=== PATIENT | female | born 1945 | race Caucasian/White ===

== ENCOUNTER 2018-05-10 15:00 | Outpatient (RCR) ==
--- NOTE | 2018-05-06 08:51 | RS.OPPTEV2 ---
Date of Note: 05/03/18 Visit #: 1 Date of Evaluation: 05/03/18 Payer Source: MEDICARE Surgery Performed?: No Treatment Diagnosis: Right low back and LE radiating pain History of Condition/Mechanism of Injury:: Reports having these symptoms for about 4-6 weeks. No specific injury at that time. States she did fall about 3 months ago, landing on her right hip. Prior Level of Function.....Patient was independent with: ADL's, Self Care, Caregiving, Ambulation/Mobility, Community Integration/Access Functional Limitations: Sleep, Self Care, ADL's, Reaching, Pushing, Pulling, Lifting, Carrying, Sitting, Standing, Bending, Squatting, Ambulation, Community Access/Integration Current Subjective/complaints:: Mrs. Cisneros reports constant pain in the right buttock/hip and down the leg to the ankle. States she hurts with any position. She has stopped driving due to the severity of her pain. States the left LE feels weaker than the right LE. States she received an injection of dexamethasone on 04/22/18, and it did not help very much. She denies any tingling or numbness into the right LE. States she has tried heat and cold. States heat aggravates her pain. Cold has helped at times, along with elevating her leg. She reports the right knee is bone on bone, and wonders if her pain is both from her back and the right knee. Reports she has to take more of her pain medication and muscle relaxant to sleep at night. *Precautions: none Medical History Medical History: Hypertension, Arthritis Medical History Comments:: sleep apnea, restess leg syndrome, Anxiety, Hyperlipidemia Surgical History Comments:: Lumbar surgery X 14 May 2014, Abdominal surgery 2014 Smoking Status: Never smoker Diagnostic Testing/Imaging:: X rays of lumbar spine on 04/22/18, show anterior fusion device and posterior pedicle screws and rods are intact without hardware complication. Hx Home Medications: amlodipine,aspirin,Benadryl,bupropion,clonidine, cyclobenzaprine,generic for lexapro,gabapentin,HCTZ,Lasix,losartan,meloxicam, miralax,multivitamin,[place],omeprazole,stool softener,zetia. Patient's Goals: Her goal is to get relief of pain. Pain Assessment - Pain Description Pain Location: right SI/buttock/hip, down LE to the ankle. Pain Description: like electrical shock at times Current Pain Intensity: 10+/10 Functional Outcome Measure LE Functional Scale: 10 (80=87.5% impairment) - G Codes & Severity Modifier G Codes & Modifier: Mobility current CM. Mobility goal CK Source of G Code score: LE functional scale Gait - Gait Pattern Gait Comments: Patient amblulates without an assistive device with decreased stance on the right LE. She demonstrates a cautious gait and is also cautious with transfers in the department. - ROM Lumbar Flexion: Hand reach to Mid-Thighs (pt holds onto chair while bent forward at the waist) Sidebending to Left: Reach to Mid-thigh Sidebending to Right: Reach to Mid-thigh Comments: Lumbar extension ~10-15 degrees past neutral reproduces pain in the right LE. Right LE AROM is WFL's. Patient reports pain with hip flexion while supine. - Strength Comments: Left LE strength 4+/5. Right hip flexion 3+, all else 4/5. Right Quads and HS 4/5, ankle 4/5. - Special Tests Seated Dural Stretch Test: Negative Left, Negative Right Comments: Unable to perform valid Special Tests due to pain with most movement of the right hip. Palpation Comments:: Reports tenderness over the right superior gluteal musculature. Reports tenderness over the right SI joint. Moderate muscle guarding along the lumbar paraspinals. Sensation - Sensation Right Lower Extremity: Intact/Normal Left Lower Extremity: Intact/Normal Additional Comments: Additional Comments: Unable to get valid measure of right HS length due to patient reports of pain with hip flexion. Tolerates at least 40 degrees of SLR. Left SLR to 50 degrees. Patient does not tolerate position for TIA's test. Reports no change in symptoms with hip distraction or compression. - Treatment Modality: Electrical Stim Unattended Parameters/Method Applied: 4 large pads, 2 pads at the right SI and lateral gluteal region, other 2 pads just inferior to the right greater trochanter X 15 mins with patient in left side lying, up to 95 peak volts. Patient Position: Left Sidelying - Heat/Cryotherapy Treatment: Cryotherapy (X2, one cold pack to each area of electrodes.) Interventions - Exercise/Activities/Manual Therapy Exercises/Activities: Patient not given exercises today. Manual Therapy: NA HOME EXERCISE PROGRAM: NA - Charges Timed Code Treatment Minutes: 15 mins Total Treatment Time: 48 mins Procedures billed for this date of service:: EVAl Medium, CP, Estim(un) EVALUATION COMPLEXITY LEVEL EVALUATION COMPLEXITY LEVEL: HISTORY: Medium (Hx back surgery, abdominal sx, right knee arthritis pain), EXAM OF BODY SYSTEMS: Medium, CLINICAL PRESENTATION : Medium, CLINICAL DECISION MAKING: Medium Assessment Assessment: Patient presents to therapy with a diagnosis of sciatica right side , right hip and knee pain. She reports constant pain in the right buttock and hip, with pain going down to her ankle. Pain limits her ability with ambulation , ADL's, and selfcare. It is difficult to determine the source of her pain, due to increased pain with most movement of the right hip or low back. She demonstrates potential to benefit from modalities to reduce her acute pain, and progress exercises as tolerated to increase her function with ambulation, ADL's , and selfcare. Patient Education: Education of diagnosis, Body/Joint mechanics, Activity Modification, Education of Plan of Care Rehab Potential: Good Short Term Goals Goal #1: Patient independent and compliant with HEP. Goal to be met by: 05/20/18 Goal #2: Right LE symptoms no longer constant. Goal to be met by: 05/20/18 Goal #3: Radiating symptoms localized to the low back/hip. Goal to be met by: 05/20/18 Intervention Teacher Goals Goal #1: Pt knows HEP and to continue ex's to maintain functional level at D/C. Goal to be met by: 06/10/18 Goal #2: Score on LE functional Scale improved to 59% impaired or less. Goal to be met by: 06/10/18 Goal #3: Pt able to perform selfcare and light ADL's with minimal right LE/LB pain. Goal to be met by: 06/10/18 Goal #4: Pt to ambulate community distances without gait deviation and min. pain. Goal to be met by: 06/10/18 Plan - Treatment to be Provided Procedures: Therapeutic Exercises, Therapeutic Activity, Manual Therapy, Patient Education Modalities: Electrical Stimulation, Ultrasound/Phonophoresis, Class IV Laser, Cryotherapy Other:: DOES NOT WANT HEAT---HEAT AGGRAVATES HER SYMPTOMS - Treatment Plan Frequency: 3 X week Duration: 4 weeks ORDER # VISITS AND/OR THROUGH DATE: 06/10/18 - Treatment Code (1) Low back pain radiating to right leg Code(s): M54.5 - LOW BACK PAIN Comments: M54.5 (2) Gait abnormality Code(s): R26.9 - UNSPECIFIED ABNORMALITIES OF GAIT AND MOBILITY Comments: R26.9
--- NOTE | 2018-05-06 16:41 | RS.OPPTDN ---
Subjective Date of Note: 05/06/18 Visit #: 2 Date of Evaluation: 05/03/18 Payer Source: MEDICARE Treatment Diagnosis: Right low back and LE radiating pain Current Subjective/complaints:: Patient reports treatment at the eval helped, but says she still remains with heightened pain to the R side of her low back and along the R hip and lateral thigh. *Precautions: none - Treatment Modality: Electrical Stim Unattended Parameters/Method Applied: hivolt 4 large pads (2 at the R lumbar paraspinals and 2 along the R hip and lateral thigh) @ 220-235 pk volts x 23 mins Patient Position: Left Sidelying - Heat/Cryotherapy Treatment: Hot Pack (concurrent estim) Interventions - Exercise/Activities/Manual Therapy Exercises/Activities: Patient not given exercises today. Education on diagnosis , anatomy, and using heat/ice at home for pain control. Patient later, admits to feeling nauseated and inquires about her medication causing it. Manual Therapy: NA HOME EXERCISE PROGRAM: NA - Charges Timed Code Treatment Minutes: 10 Total Treatment Time: 33 Procedures billed for this date of service:: hp, estim (un) Assessment: Patient experiencing slight pain reduction following modalities today. After treatment, she c/o feeling nauseated. She should benefit from continued modalities and progress to gentle stretching if yvon. this week. Short Term Goals Goal #1: Patient independent and compliant with HEP. Goal to be met by: 05/20/18 Goal #2: Right LE symptoms no longer constant. Goal to be met by: 05/20/18 Goal #3: Radiating symptoms localized to the low back/hip. Goal to be met by: 05/20/18 License Issuer Goals Goal #1: Pt knows HEP and to continue ex's to maintain functional level at D/C. Goal to be met by: 06/10/18 Goal #2: Score on LE functional Scale improved to 59% impaired or less. Goal to be met by: 06/10/18 Goal #3: Pt able to perform selfcare and light ADL's with minimal right LE/LB pain. Goal to be met by: 06/10/18 Goal #4: Pt to ambulate community distances without gait deviation and min. pain. Goal to be met by: 06/10/18 Plan PLAN OF CARE EXPIRES ON:: 06/10/18 ORDER # VISITS AND/OR THROUGH DATE: 06/10/18 PLAN: Continue TIW to ease R sided back and hip pain
--- NOTE | 2018-05-08 14:30 | RS.OPPTDN ---
Subjective Date of Note: 05/08/18 Visit #: 3 Date of Evaluation: 05/03/18 Payer Source: MEDICARE Treatment Diagnosis: Right low back and LE radiating pain Current Subjective/complaints:: Patient says she may be "itty bitty better." Reports her pain is still really affecting her ambulation. She says moving positions and bed mobility are tough for her. *Precautions: none - Treatment Modality: Electrical Stim Unattended Parameters/Method Applied: hivolt 4 large pads at the R lower lumbar paraspinals and along the R lateral thigh @ 230-255 pk volts x 23 mins Patient Position: Left Sidelying - Heat/Cryotherapy Treatment: Hot Pack Interventions - Exercise/Activities/Manual Therapy Exercises/Activities: Patient still unable to yvon therex today. Pain only lessened slightly after modalities. Educated patient on proper body mechanics and postural techniques. Manual Therapy: NA HOME EXERCISE PROGRAM: NA - Charges Timed Code Treatment Minutes: 7 Total Treatment Time: 30 Procedures billed for this date of service:: hp, estim (un) Assessment: Patient continues to have severe R low back and hip pain. Pain extends down the upper lateral thigh and worsens with bed mobility and positioning. Patient Education: Education of diagnosis, Body/Joint mechanics, Home Safety, Education of Plan of Care Short Term Goals Goal #1: Patient independent and compliant with HEP. Goal to be met by: 05/20/18 Goal #2: Right LE symptoms no longer constant. Goal to be met by: 05/20/18 Goal #3: Radiating symptoms localized to the low back/hip. Goal to be met by: 05/20/18 Jail Goals Goal #1: Pt knows HEP and to continue ex's to maintain functional level at D/C. Goal to be met by: 06/10/18 Goal #2: Score on LE functional Scale improved to 59% impaired or less. Goal to be met by: 06/10/18 Goal #3: Pt able to perform selfcare and light ADL's with minimal right LE/LB pain. Goal to be met by: 06/10/18 Goal #4: Pt to ambulate community distances without gait deviation and min. pain. Goal to be met by: 06/10/18 Plan PLAN OF CARE EXPIRES ON:: 06/10/18 ORDER # VISITS AND/OR THROUGH DATE: 06/10/18 PLAN: Continue modalities. Attempt gentle therex next session.
--- NOTE | 2018-05-10 16:32 | RS.OPPTDN ---
Subjective Date of Note: 05/10/18 Visit #: 4 Date of Evaluation: 05/03/18 Payer Source: MEDICARE Treatment Diagnosis: Right low back and LE radiating pain Current Subjective/complaints:: Patient says she can only tell a little pain relief with treatment. She says walking is still bothersome to her and the hip pain has made her "off-balanced." *Precautions: none Pain Assessment - Pain Description Pain Location: R hip and lateral thigh - Treatment Modality: Electrical Stim Unattended Parameters/Method Applied: hivolt 2 large pads at the R glut and 2 large lateral thigh @ 190-205 pk volts x 20 mins Patient Position: Left Sidelying - Heat/Cryotherapy Treatment: Cryotherapy Interventions - Exercise/Activities/Manual Therapy Exercises/Activities: Patient receives gentle SKTC, HS, Piriformis, and lower trunk rotation for the R. She performs pillow squeezes x 10. Explained all therex and discussed proper body mechanics and safety with gait/transfers. Total minutes of Exercise: 14 Manual Therapy: NA HOME EXERCISE PROGRAM: NA - Charges Timed Code Treatment Minutes: 14 Total Treatment Time: 34 Procedures billed for this date of service:: cp, estim (un), ex Assessment: Patient expressing continued moderate to severe R hip and upper/ lateral thigh pain. She admits improvement following treatment today, but did not rate or describe symptom relief. She yvon beginning exercise well. She had 2 stumbles leaving the dept as distracted with conversation, but regained independently. Patient Education: Education of diagnosis, Body/Joint mechanics, Home Safety, Education of Plan of Care Short Term Goals Goal #1: Patient independent and compliant with HEP. Goal to be met by: 05/20/18 Progress towards Goal:: Progressing Goal #2: Right LE symptoms no longer constant. Goal to be met by: 05/20/18 Goal #3: Radiating symptoms localized to the low back/hip. Goal to be met by: 05/20/18 [place] Image Consultant Goals Goal #1: Pt knows HEP and to continue ex's to maintain functional level at D/C. Goal to be met by: 06/10/18 Goal #2: Score on LE functional Scale improved to 59% impaired or less. Goal to be met by: 06/10/18 Goal #3: Pt able to perform selfcare and light ADL's with minimal right LE/LB pain. Goal to be met by: 06/10/18 Goal #4: Pt to ambulate community distances without gait deviation and min. pain. Goal to be met by: 06/10/18 Plan PLAN OF CARE EXPIRES ON:: 06/10/18 ORDER # VISITS AND/OR THROUGH DATE: 06/10/18 PLAN: Continue modalities and therex next week. If no symptom change, may modify to u/s.
== END 2018-05-12 23:59 ==
PROVIDERS: ATTEND Family Medicine
DX: M54.31 Sciatica, right side (principal); M25.551 Pain in right hip; M25.561 Pain in right knee; M54.5 Low back pain; R26.9 Unspecified abnormalities of gait and mobility

== ENCOUNTER 2018-05-27 14:00 | Outpatient (RCR) ==
--- NOTE | 2018-05-14 14:13 | RS.CXNS ---
Date of scheduled appointment: 05/14/18 Type: Cancel Reason for Cancel/NS: No transportation
--- NOTE | 2018-05-15 15:25 | RS.OPPTDN ---
Subjective Date of Note: 05/15/18 Visit #: 5 Date of Evaluation: 05/03/18 Payer Source: MEDICARE Treatment Diagnosis: Right low back and LE radiating pain Current Subjective/complaints:: Patient says she will be having TKR 06/20/18. She says she is having some reduced pain into the R buttock and back, but is unable to tell which one bothers her more. She is hoping TKR will relieve some of this pain. She denies any increase related to beginning exercise last session. *Precautions: none - Treatment Modality: Electrical Stim Unattended Parameters/Method Applied: hivolt 2 large pads at the R lumbar paraspinals and SI joint and 2 at the lateral thigh and greater trochanter @ 215-230 pk volts x 20 mins Patient Position: Left Sidelying - Heat/Cryotherapy Treatment: Cryotherapy Interventions - Exercise/Activities/Manual Therapy Exercises/Activities: Patient receives gentle SKTC, HS, Piriformis, and lower trunk rotation for the R. She performs pillow squeezes and isometric hip abd x 10. R hip flexion in hooklying x 5. Explained all therex and discussed proper body mechanics and safety with gait/transfers. Total minutes of Exercise: 18 Manual Therapy: NA HOME EXERCISE PROGRAM: NA - Charges Timed Code Treatment Minutes: 18 Total Treatment Time: 38 Procedures billed for this date of service:: cp, estim (un), ex Assessment: Patient admitting mildly improved pain temporarily to the R SI and hip. She is preparing to have TKR next month and is hoping it will also help the other area of pain. She is able to yvon all stretching today and appears to be more flexible than previous session. Patient Education: Body/Joint mechanics, Home Exercise Program, Education of Plan of Care Patient demonstrates compliance with HEP?: Yes Short Term Goals Goal #1: Patient independent and compliant with HEP. Goal to be met by: 05/20/18 Progress towards Goal:: Progressing Goal #2: Right LE symptoms no longer constant. Goal to be met by: 05/20/18 Progress towards Goal:: Progressing Goal #3: Radiating symptoms localized to the low back/hip. Goal to be met by: 05/20/18 Catcher Plug Goals Goal #1: Pt knows HEP and to continue ex's to maintain functional level at D/C. Goal to be met by: 06/10/18 Goal #2: Score on LE functional Scale improved to 59% impaired or less. Goal to be met by: 06/10/18 Goal #3: Pt able to perform selfcare and light ADL's with minimal right LE/LB pain. Goal to be met by: 06/10/18 Goal #4: Pt to ambulate community distances without gait deviation and min. pain. Goal to be met by: 06/10/18 Plan PLAN OF CARE EXPIRES ON:: 06/10/18 ORDER # VISITS AND/OR THROUGH DATE: 06/10/18 PLAN: Patient to continue BIW ~2 more weeks and prepare for TKR.
--- NOTE | 2018-05-17 16:12 | RS.OPPTDN ---
Subjective Date of Note: 05/17/18 Visit #: 6 Date of Evaluation: 05/03/18 Payer Source: MEDICARE Treatment Diagnosis: Right low back and LE radiating pain Current Subjective/complaints:: Patient says her pain is reducing. She says the exercises has not bothered her. Reports a little improvement with yvon to household activities, but is not specific. *Precautions: none - Treatment Modality: Electrical Stim Unattended Parameters/Method Applied: hivolt 4 large pads at the greater trochanter and SI joint @ 235-270 pk volts x 20 mins Patient Position: Left Sidelying - Heat/Cryotherapy Treatment: Cryotherapy Interventions - Exercise/Activities/Manual Therapy Exercises/Activities: Patient receives gentle SKTC, HS, Piriformis, and lower trunk rotation for the R. She performs pillow squeezes and isometric hip abd x 10. R hip isometric flexion in hooklying x 6. Patient educated on HeP and body mechanics avoiding twisting at the spine and knees. Answered questions about her recovery for TKR and swingbed program. Total minutes of Exercise: 22 Manual Therapy: NA HOME EXERCISE PROGRAM: NA - Charges Timed Code Treatment Minutes: 22 Total Treatment Time: 42 Procedures billed for this date of service:: cp, estim (un), ex Assessment: Patient progressing with reduced pain and improved yvon to stretching and hip strengthening. She is preparing for pending TKR. Patient Education: Body/Joint mechanics, Home Exercise Program, Education of Plan of Care Patient demonstrates compliance with HEP?: Yes Short Term Goals Goal #1: Patient independent and compliant with HEP. Goal to be met by: 05/20/18 Progress towards Goal:: Progressing Goal #2: Right LE symptoms no longer constant. Goal to be met by: 05/20/18 Progress towards Goal:: Progressing Goal #3: Radiating symptoms localized to the low back/hip. Goal to be met by: 05/20/18 Progress towards Goal:: Progressing Comments:: Staying closer to the SI joint Detention Goals Goal #1: Pt knows HEP and to continue ex's to maintain functional level at D/C. Goal to be met by: 06/10/18 Goal #2: Score on LE functional Scale improved to 59% impaired or less. Goal to be met by: 06/10/18 Goal #3: Pt able to perform selfcare and light ADL's with minimal right LE/LB pain. Goal to be met by: 06/10/18 Goal #4: Pt to ambulate community distances without gait deviation and min. pain. Goal to be met by: 06/10/18 Plan PLAN OF CARE EXPIRES ON:: 06/10/18 ORDER # VISITS AND/OR THROUGH DATE: 06/10/18 PLAN: Patient to continue BIW for 2 weeks.
--- NOTE | 2018-05-21 15:57 | RS.OPPTDN ---
Subjective Date of Note: 05/21/18 Visit #: 8 Date of Evaluation: 05/03/18 Payer Source: MEDICARE Treatment Diagnosis: Right low back and LE radiating pain Current Subjective/complaints:: Patient reports she was at an appt with a " eviction specialist" today. She says she was hopeful she would have an injection for the R hip/low back, but was unable to receive it until she had lab work. She notes fatigue and increased pain from being there for so long. She continues to not be driving. *Precautions: none Pain Assessment - Pain Description Pain Location: elevated - Treatment Modality: Electrical Stim Unattended Parameters/Method Applied: Hivolt 4 large pads at the R SI region and along the lateral surface of the R LE @ 220-235 pk volts x 20 mins Patient Position: Left Sidelying - Heat/Cryotherapy Treatment: Cryotherapy Interventions - Exercise/Activities/Manual Therapy Exercises/Activities: Patient receives gentle SKTC, HS, Piriformis, Fig 4, and lower trunk rotation for the R. She performs pillow squeezes and isometric hip abd x 10. R hip isometric flexion in hooklying x 6. Reviewed HEP. Total minutes of Exercise: 18 Manual Therapy: NA HOME EXERCISE PROGRAM: NA - Charges Timed Code Treatment Minutes: 18 Total Treatment Time: 38 Procedures billed for this date of service:: cp, estim (un), ex Assessment: Patient with increased pain and fatigue today related to prolonged MD appt. She has increased yvon to stretching especially feeling relief with fig 4 stretch. Patient Education: Body/Joint mechanics, Home Exercise Program Patient demonstrates compliance with HEP?: Yes Short Term Goals Goal #1: Patient independent and compliant with HEP. Goal to be met by: 05/20/18 Progress towards Goal:: Progressing Goal #2: Right LE symptoms no longer constant. Goal to be met by: 05/20/18 Progress towards Goal:: Progressing Goal #3: Radiating symptoms localized to the low back/hip. Goal to be met by: 05/20/18 Progress towards Goal:: Progressing [facility] Goals Goal #1: Pt knows HEP and to continue ex's to maintain functional level at D/C. Goal to be met by: 06/10/18 Goal #2: Score on LE functional Scale improved to 59% impaired or less. Goal to be met by: 06/10/18 Goal #3: Pt able to perform selfcare and light ADL's with minimal right LE/LB pain. Goal to be met by: 06/10/18 Goal #4: Pt to ambulate community distances without gait deviation and min. pain. Goal to be met by: 06/10/18 Plan PLAN OF CARE EXPIRES ON:: 06/10/18 ORDER # VISITS AND/OR THROUGH DATE: 06/10/18 PLAN: Continue x 1-2 more weeks for modalities and therex for the low back and R hip.
--- NOTE | 2018-05-27 16:11 | RS.OPPTDN ---
Subjective Date of Note: 05/27/18 Visit #: 9 Number of visits approved by Insurance: 3x4, 06/10/18 [facility] Date of Evaluation: 05/03/18 Payer Source: MEDICARE Treatment Diagnosis: Right low back and LE radiating pain Current Subjective/complaints:: Patient says her pain is improving at the hip, but also reports continued increasing pain to the R knee. She is preparing for surgery (TKR) and asks questions concerning it. *Precautions: none Pain Assessment - Pain Description Pain Location: R hip, R knee - Treatment Modality: Electrical Stim Unattended Parameters/Method Applied: along the R greater trochanter and R lateral thigh hivolt @ 220-245 pk volts x 20 mins Patient Position: Left Sidelying - Heat/Cryotherapy Treatment: Cryotherapy Interventions - Exercise/Activities/Manual Therapy Exercises/Activities: Patient receives gentle SKTC, HS, Piriformis, Fig 4, and lower trunk rotation for the R. She performs pillow squeezes and isometric hip abd x 10. R hip isometric flexion in hooklying x 6. Reviewed HEP. Total minutes of Exercise: 16 Manual Therapy: NA HOME EXERCISE PROGRAM: NA - Charges Timed Code Treatment Minutes: 16 Total Treatment Time: 36 Procedures billed for this date of service:: cp, estim (un),ex Assessment: Patient admitted improved pain to R hip describing as mild currently. She remains with limitations with standing and walking mostly due to her R knee. She will be having surgery first week of June. She continues to perform general hip strengthening and she demo improved flexibility with HS and piriformis. Patient Education: Education of diagnosis, Home Exercise Program, Education of Plan of Care Patient demonstrates compliance with HEP?: Yes Short Term Goals Goal #1: Patient independent and compliant with HEP. Goal to be met by: 05/20/18 Progress towards Goal:: Progressing Goal #2: Right LE symptoms no longer constant. Goal to be met by: 05/20/18 Progress towards Goal:: Progressing Goal #3: Radiating symptoms localized to the low back/hip. Goal to be met by: 05/20/18 Progress towards Goal:: Progressing Commercial Real Estate Manager Goals Goal #1: Pt knows HEP and to continue ex's to maintain functional level at D/C. Goal to be met by: 06/10/18 Goal #2: Score on LE functional Scale improved to 59% impaired or less. Goal to be met by: 06/10/18 Goal #3: Pt able to perform selfcare and light ADL's with minimal right LE/LB pain. Goal to be met by: 06/10/18 Goal #4: Pt to ambulate community distances without gait deviation and min. pain. Goal to be met by: 06/10/18 Plan Dates of Commercial Real Estate Manager Goals: 06/10/18 Expiration date of current Insurance Approval:: 06/10/18 PLAN: Check POC by next visit to verify signature. She has 1 session remaining.
--- NOTE | 2018-05-31 09:11 | RS.OPPTDN ---
Subjective Date of Note: 05/24/18 Visit #: 8 Number of visits approved by Insurance: na Date of Evaluation: 05/03/18 Payer Source: MEDICARE Treatment Diagnosis: Right low back and LE radiating pain Current Subjective/complaints:: Patient says her hip pain is lessening, but R knee is C/c. She speaks about pending TKR and wants to make sure she can come to our facility for inpatient care afterwards. She reports exercises seem to not be as hard to do now. *Precautions: none - Treatment Modality: Electrical Stim Unattended Parameters/Method Applied: hivolt 4 large pads @ R greater trochanter and lateral upper thigh 265-285 pk volts x 20 mins Patient Position: Left Sidelying - Heat/Cryotherapy Treatment: Cryotherapy (over the R hip and lateral thigh) Interventions - Exercise/Activities/Manual Therapy Exercises/Activities: Patient receives SKTC, HS, Piriformis, Fig 4, and lower trunk rotation for the R. She performs pillow squeezes and isometric hip abd x 10. R hip isometric flexion in hooklying x 6. QS, SAQ x 10. Reviewed HEP. Total minutes of Exercise: 20 Manual Therapy: NA HOME EXERCISE PROGRAM: NA - Charges Timed Code Treatment Minutes: 20 Total Treatment Time: 40 Procedures billed for this date of service:: cp, estim (un), ex Assessment: Patient demo improved hamstring and piriformis length and yvon to therex with reduced pain to this location, but continues with C/c being R knee. Discussed further swingbed program and importance of ice/HEP. Patient Education: Home Exercise Program, Home Safety, Education of Plan of Care Patient demonstrates compliance with HEP?: Yes Short Term Goals Goal #1: Patient independent and compliant with HEP. Goal to be met by: 05/20/18 Progress towards Goal:: Met Goal #2: Right LE symptoms no longer constant. Goal to be met by: 05/20/18 Progress towards Goal:: Met Goal #3: Radiating symptoms localized to the low back/hip. Goal to be met by: 05/20/18 Progress towards Goal:: Progressing Comments:: R TKR pending Microfiche Camera Operator Goals Goal #1: Pt knows HEP and to continue ex's to maintain functional level at D/C. Goal to be met by: 06/10/18 Progress towards goal: Progressing Goal #2: Score on LE functional Scale improved to 59% impaired or less. Goal to be met by: 06/10/18 Goal #3: Pt able to perform selfcare and light ADL's with minimal right LE/LB pain. Goal to be met by: 06/10/18 Progress towards goal: Progressing Goal #4: Pt to ambulate community distances without gait deviation and min. pain. Goal to be met by: 06/10/18 Plan Dates of Microfiche Camera Operator Goals: 06/10/18 Expiration date of current Insurance Approval:: 06/10/18 PLAN: Patient to continue 1-2 more sessions prior to discontinuing due to pending surgery.
--- NOTE | 2018-05-31 10:58 | RS.OPPTDC ---
Date of Discharge: 05/27/18 Date of Evaluation: 05/03/18 Number of Visits: 9 Treatment Diagnosis: Right low back and LE radiating pain Current Complaints/Gains: Pt reports reduced right hip pain. She is preparing for a TKA on the right knee next week. States she is moving around better, due to less back and hip pain. Functional Outcome Measure LE Functional Scale: 10 - G Codes & Severity Modifier G Codes & Modifier: MOB D/C CM. Mob Goal CK Source of G Code score: LE functional scale Interventions - Exercise/Activities/Manual Therapy Exercises/Activities: NA Manual Therapy: NA HOME EXERCISE PROGRAM: NA - Objective Findings Observations,measurements,etc.: Demonstrates improved flexibility and toelrates stretching. She remains with limited lumbar extension, but no longer has tenderness to the right superior gluteal musculature. - Charges Timed Code Treatment Minutes: NA Total Treatment Time: NA Procedures billed for this date of service:: NA Assessment Assessment: Mrs. Cisneros reports less right hip pain. Reports being able to "move around" better. She is still limited due to right knee pain/OA and will be having a TKA next week. Short Term Goals Goal #1: Patient independent and compliant with HEP. Goal to be met by: 05/20/18 Progress towards Goal:: Met Goal #2: Right LE symptoms no longer constant. Goal to be met by: 05/20/18 Progress towards Goal:: Met Goal #3: Radiating symptoms localized to the low back/hip. Goal to be met by: 05/20/18 Progress towards Goal:: Not Met Assisted Goals Goal #1: Pt knows HEP and to continue ex's to maintain functional level at D/C. Goal to be met by: 06/10/18 Progress towards goal: Met Goal #2: Score on LE functional Scale improved to 59% impaired or less. Goal to be met by: 06/10/18 Progress towards goal: Not Met Goal #3: Pt able to perform selfcare and light ADL's with minimal right LE/LB pain. Goal to be met by: 06/10/18 Progress towards goal: Not Met Goal #4: Pt to ambulate community distances without gait deviation and min. pain. Goal to be met by: 06/10/18 Progress towards goal: Not Met Plan Reason for Discharge:: Self-Discharge Comments: Pt requests D/C to focus on TKA of right knee next week.
== END 2018-06-12 23:59 ==
PROVIDERS: ATTEND Family Medicine
DX: M54.31 Sciatica, right side (principal); M25.551 Pain in right hip; M25.561 Pain in right knee

== ENCOUNTER 2018-06-24 13:11 | Inpatient (IN) ==
[2018-06-24 13:57] VITALS: BMI 51.3
[2018-06-24] MEDS ORDERED: NON-FORMULARY MEDICATION (Oxycodone Hcl [Oxycodone Hcl] 10 MG) PO PRN (14:08)
[2018-06-24] MEDS ORDERED: NON-FORMULARY MEDICATION (Tizanidine Hcl [Zanaflex] 4 MG) PO PRN (14:08)
[2018-06-24] MEDS ORDERED: ZANAFLEX PO PRN (14:42)
[2018-06-24] MEDS ORDERED: POTASSIUM CHLORIDE 20 MEQ PO SCH (15:00)
[2018-06-24] MEDS: NEURONTIN PO SCH ×2 (15:19→20:09)
[2018-06-24] MEDS: METAMUCIL PO PRN (15:19)
--- NOTE | 2018-06-24 15:25 | RS.OTINEVL ---
Subjective - Patient information Date of Evaluation: 06/24/18 Date of Arrival on Unit: 06/24/18 Admitted From:: Facility Transfer Usual Living Arrangement: With Spouse Living Arrangement Comments: Son lives there occasionally too Home Environment: House, Stairs (few), Rail Medical History: Hypertension Medical History Comments:: Spot on the liver, hernia surgery, spine surgery, occasional wine, depression, UTI, Vomiting, constipation, hiatal hernia, constipation, respiratory disorders, HTN, CPAP @ night Surgical History: Knee Replacement Surgical History Comments:: R TKA, spine surgery, hernia surgery Subjective Information/ Patient Comments:: "I just want to get back to bed." - Level of function Abilities prior to this admission: Pt was independent with dressing, bathing on a shower chair. Pt uses a BSC at home. Pt was using a RW. Current Level of Function: Partially Dependent Current Equipment Used at Home: CPAP, BSC, shower chair, RW, Pain Assessment - Pain Pain Score: 5 Side: right Pain Location Body Site: Knee Pain Aggravating Factors: ADL's, Changing Position, Exercise/Activity, Standing , Sitting Pain Alleviating Factors: Ice, Medication, Lying Supine Interventions - Objective Patient Orientation: Person, Place, Time, Situation Observation: Pt appears short of breath at times and will hold her breath instead of breathing. Pt is minimal assist with RLE to get in and out of the bed. Pt stood with moderate assistance for sit to stand from EOB. Interventions - ROM Right Upper Extremity AROM: WFL's Left Upper Extremity AROM: WFL's - Strength Right Upper Extremity Strength: Mild Weakness Left Upper Extremity Strength: Mild Weakness - Sensation Right Upper Extremity Sensation: Intact/Normal Left Upper Extremity Sensation: Intact/Normal Balance - Sitting Balance Static Sitting Balance: Good Dynamic Sitting Balance: Good - Standing Balance Static Standing Balance: Poor Dynamic Standing Balance: Poor - Comments Balance Assessment Comments: Poor ADL Skills - Self Feeding Self Feeding: Independent - Grooming Grooming: Set Up Only - Bathing Bathing UE: Set Up Only Bathing LE: Mod Assist - Dressing Dressing UE: Set Up Only Dressing LE: Mod Assist - Toilet Management Toileting Management: Max Assist Functional Mobility - Bed Mobility Rolling R/L: Mod Assist Scooting: Mod Assist Supine to Sit: Mod Assist Sit to Supine: Mod Assist - Transfers Sit to Stand: Mod Assist Stand to Sit: Min Assist Stand Pivot Transfers: Min Assist - Ambulation Weight Bearing Status: WBAT Assistive Device Used: Rolling Walker Assistance needed with Ambulation: Min Assist, 1 person assist - Safety Awareness Safety Awareness: Good YAHAIRA INDEX SCORE: 60 Additional Treatment Performed - Additional units charged ADL: 15 - Time with patient Length of Evaluation: 20 Total treatment time: 35 Activities Would you be interested in leaving your room for activities?: Yes Would you enjoy group activities?: Yes Patient Interests:: Watching Television, Visiting/Socializing Patient Education Patient Education: Education of diagnosis, Home Exercise Program, Education of Plan of Care Teaching Recipient: Patient, Significant Other Teaching Methods: Teach Back Method Used Assessment Problem List:: Decreased level of function, Requires training/education, Decreased safety/Risk of falls, Weakness Rehab Potential: Good Further Therapy Indicated?: Yes Candidate for Swing Bed for Therapy Services?: yes Evaluation Complexity: HISTORY: Medium, EXAM OF BODY SYSTEMS: Medium, CLINICAL DECISION MAKING: Medium Short Term Goals - Goals GOAL 1: Pt to increase BUE strength to 4+/5. Goal to be met by: 06/27/18 GOAL 2: Pt to be I with getting to EOB and sitting. Goal to be met by: 06/27/18 GOAL 3: Pt to be Min A to complete LB dressing. Goal to be met by: 06/27/18 GOAL 4: Pt to increase to sink level ADLS with RW CGA. Goal to be met by: 06/27/18 Sock Folder Goals GOAL 1: Pt to increase strength for sink level ADLS with RW CGA. Goal to be met by: 07/05/18 GOAL 2: Pt to be mod-I with LB dressing . Goal to be met by: 07/05/18 GOAL 3: Pt to be mod-I with self care management. Goal to be met by: 07/05/18 Plan Plan of Care: Therapeutic EX, Neuromuscular Re-Educ, Therapeutic Activity, Self- Care/Home Management Frequency of Treatment: 1-2 X day, as tolerated Duration of Treatment: 2 Weeks Anticipated Discharge Destination: Home Treatment Diagnosis (ICD 10 Codes): M62.81 Muscle Weakness Has the Physician been added for Co-signature?: Yes
[2018-06-24] MEDS: K-DUR PO SCH (17:16)
[2018-06-24] MEDS: OXYCODONE PO PRN ×2 (17:16→21:29)
[2018-06-24] MEDS: CALCIUM 500 + VIT D 200 MG TABLET PO SCH (20:09)
[2018-06-24] MEDS: NORVASC PO SCH (20:09)
[2018-06-24] MEDS ORDERED: NON-FORMULARY MEDICATION (Calcium Carbonate [Calcium] 600 MG) PO SCH (21:00)
[2018-06-25] MEDS: PRILOSEC PO SCH (06:07)
[2018-06-25] MEDS: OXYCODONE PO PRN ×4 (06:08→20:27)
[2018-06-25] MEDS ORDERED: MOBIC PO SCH (08:00)
[2018-06-25] MEDS: MULTIVITAMIN TABLET PO SCH (08:27)
[2018-06-25] MEDS: CALCIUM 500 + VIT D 200 MG TABLET PO SCH ×2 (08:27→20:26)
[2018-06-25] MEDS: K-DUR PO SCH ×3 (08:28→16:54)
[2018-06-25] MEDS: NEURONTIN PO SCH ×3 (08:28→20:26)
[2018-06-25] MEDS: COZAAR PO SCH (08:28)
[2018-06-25] MEDS: HYDROCHLOROTHIAZIDE PO SCH (08:28)
[2018-06-25] MEDS: WELLBUTRIN XL PO SCH (08:28)
[2018-06-25] MEDS: LEXAPRO PO SCH (08:28)
[2018-06-25] MEDS: XARELTO PO SCH (08:29)
[2018-06-25] MEDS: ZETIA PO SCH (08:29)
[2018-06-25] MEDS ORDERED: DULCOLAX RC STA (08:51)
[2018-06-25] MEDS ORDERED: NON-FORMULARY MEDICATION (Escitalopram Oxalate [Lexapro] 20 MG) PO SCH (09:00)
[2018-06-25] MEDS ORDERED: COLACE PO SCH (09:00)
[2018-06-25] MEDS ORDERED: NON-FORMULARY MEDICATION (Meloxicam [Mobic] 15 MG) PO SCH (09:00)
--- NOTE | 2018-06-25 11:54 | RS.PTINEVL ---
Subjective - Patient information Date of Evaluation: 06/25/18 Date of Arrival on Unit: 06/24/18 Admitted From:: Facility Transfer (transfer from [facility] for Swing bed) Diagnosis: OA R knee s/p R TKR 06/20/18 Usual Living Arrangement: With Spouse Home Environment: House, Stairs (few) Medical History: Hypertension, Arthritis Medical History Comments:: depression, chronic back pain, GERD LATEX ALLERGY?: No Surgical History: Lumbar Spine, Tonsillectomy, Hysterectomy Surgical History Comments:: hernia repair Medications: see chart Subjective Information/ Patient Comments:: pt states that she is hurting today. pt appears anxious regarding therapy. - Level of function Prior to this admission, the patient could do the following:: Independent Ambulation, Participated in Social Activities Outside home Abilities prior to this admission: pt reports her had to help her with toilet hygeine due to being overweight. Current Level of Function: Partially Dependent Current Equipment Used at Home: CPAP, BSC, shower chair, RW, Pain Assessement - Location Right Knee Description: Sharp, Aching, Acute Intensity: 8 Pain Behavior: Guarding, Facial Grimacing Pain Aggravating Factors: ADL's, Changing Position, Exercise/Activity, Standing , Walking Pain Alleviating Factors: Ice, Medication Interventions - Objective Patient Orientation: Person, Place Range of Motion - ROM Right Upper Extremity AROM: WFL's Left Upper Extremity AROM: WFL's Right Lower Extremity AROM: Moderate limitation (AAROM R knee flex 70 ext -8) Left Lower Extremity AROM: WFL's Muscle Strength - Muscle Strength Right Upper Extremity Strength: Mild Weakness (grossly 4+/5) Left Upper Extremity Strength: Mild Weakness (grossly 4+/5) Right Lower Extremity Strength: Mild Weakness (hip flex 4-/5, knee flex/ext 3-/5 , ankle DF/PF 4/5) Left Lower Extremity Strength: Mild Weakness (grossly 4+/5) Sensation - Sensation Right Upper Extremity Sensation: Intact/Normal Left Upper Extremity Sensation: Intact/Normal Right Lower Extremity Sensation: Impaired (n/t medial RLE) Left Lower Extremity Sensation: Intact/Normal Palpation Comments:: tenderness R knee Balance - Sitting Balance and Reactions Static Sitting Balance: Good Dynamic Sitting Balance: Fair Sitting Equilibrium Reactions: Delayed Left, Delayed Right Sitting Protective Reactions: Delayed Left, Delayed Right - Standing Balance and Reactions Static Standing Balance: Poor Dynamic Standing Balance: Poor Standing Equilibrium Reactions: Delayed Left, Delayed Right Standing Protective Reactions: Delayed Left, Delayed Right Functional Mobility - Bed Mobility Rolling R/L: Min Assist Scooting: Mod Assist Sit to Supine: Min Assist - Transfers Sit to Stand: Min Assist, Mod Assist, 2 person assist Stand to Sit: Min Assist, 2 person assist - Safety Awareness Safety Awareness: Fair YAHAIRA INDEX SCORE: 35 Ambulation - Ambulation Assistive Device Used: Rolling Walker Orthotic/Prosthetic Device: No Distance: 10ft Assistance needed with Ambulation: Min Assist, 2 person assist Gait Deviations: Forward posture, Short stride Ambulation Comments: pt amb with increased lat sway with decreased knee flex with decreased heel strike/toe off gait pattern. Factors Affecting Ambulation: Decreased Balance, Pain, Weakness, Decreased Safety, Limited Endurance Treatment time - Units charged ADL: 1 (theract) - Time with patient Length of Evaluation: 21 Total treatment time: 32 Patient Education - Education Patient Education: Activity Modification, Education of Plan of Care Teaching Recipient: Patient Teaching Methods: Discussion Comments: discussion regarding POC as well as importance of being out of bed and working on increasing ROM R knee Assessment - Assessment Problem List:: Decreased level of function, Requires training/education, Decreased safety/Risk of falls, Weakness, Pain limits previous level of function Rehab Potential: Good Further Therapy Indicated?: Yes Candidate for Swing Bed for Therapy Services?: pt is swing bed pt Evaluation Complexity: HISTORY: Medium (HTN, OA, depression, ), EXAM OF BODY SYSTEMS: Medium (ROM, strength, balance, transfer edema), CLINICAL PRESENTATION : Medium, CLINICAL DECISION MAKING: Medium Short Term Goals GOAL #1: Improve R knee flex 80 ext -5 AAROM Goal to be met by: 06/28/18 GOAL #2: pt transfer sup to/from sit min x 1, sit to/from stand min x 1 Goal to be met by: 06/28/18 GOAL #3: pt amb with rwx 75ft min to CGA x 1 with improved sequencing Goal to be met by: 06/28/18 GOAL #4: pt with decreased pain R knee < 7/10 Goal to be met by: 06/28/18 GOAL #5: Independent with rolling and scooting up in bed Goal to be met by: 06/28/18 Polish Maker Goals GOAL #1: pt transfer sup to/from sit to/from stand SBA Goal to be met by: 07/05/18 GOAL #2: pt amb functional household distance w rwx SBA up/down 3 steps CGA Goal to be met by: 07/05/18 GOAL #3: Improve R knee flex 95 ext 0 Goal to be met by: 07/05/18 Plan Plan of Care: Therapeutic EX, Therapeutic Activity Modalities: Cold Pack/Cryotherapy, Electrical Stimulation Other:: gait training Frequency of Treatment: 1-2 X day, as tolerated Duration of Treatment: 2 Weeks Anticipated Discharge Destination: Home Treatment Diagnosis (ICD 10 Codes): aftercare following total knee replacement. R26.2 difficulty walking. M62. 81 general weakness. knee pain Has the Physician been added for Co-signature?: Yes
--- NOTE | 2018-06-25 16:01 | DI ---
EXAM: Two views of the chest. History: Fever and cough. Findings: Heart is mildly enlarged. Prominent contour of the thoracic aorta. Left lower lobe infil trate. No appreciable pleural fluid and no pneumothorax. No acute osseous abnormalities. Impression: 1. Left lower lobe infiltrate. 2. Mild cardiomegaly and prominent contour of the thoracic aorta.
[2018-06-25] MEDS: NORVASC PO SCH (20:26)
[2018-06-26] MEDS: OXYCODONE PO PRN ×5 (02:35→21:24)
[2018-06-26] MEDS: PRILOSEC PO SCH (05:41)
[2018-06-26] MEDS ORDERED: ZITHROMAX PO STA (08:03)
[2018-06-26] MEDS ORDERED: COLACE ONE (08:34)
[2018-06-26] MEDS ORDERED: ZITHROMAX ONE (08:35)
[2018-06-26] MEDS: CALCIUM 500 + VIT D 200 MG TABLET PO SCH ×2 (08:44→20:41)
[2018-06-26] MEDS: MULTIVITAMIN TABLET PO SCH (08:44)
[2018-06-26] MEDS: K-DUR PO SCH ×3 (08:45→17:10)
[2018-06-26] MEDS: COZAAR PO SCH (08:45)
[2018-06-26] MEDS: NEURONTIN PO SCH ×3 (08:45→20:41)
[2018-06-26] MEDS: WELLBUTRIN XL PO SCH (08:45)
[2018-06-26] MEDS: ZETIA PO SCH (08:45)
[2018-06-26] MEDS: HYDROCHLOROTHIAZIDE PO SCH (08:45)
[2018-06-26] MEDS: LEXAPRO PO SCH (08:45)
[2018-06-26] MEDS: XARELTO PO SCH (08:46)
[2018-06-26] MEDS: COLACE PO SCH ×2 (09:23→20:41)
--- NOTE | 2018-06-26 09:24 | PCM.PROG ---
Attending Provider: ATTENDING PROVIDER: Dr. GUADALUPE DOLAN This patient is seen with Yue Reilly, Nurse Practitioner. DATE OF SERVICE: 06/26/18 SUBJECTIVE: This 72 year old WHITE/ F was hospitalized 06/24/18. The patient is sitting in the chair resting comfortably. There is minimal swelling right knee. She states pain is controlled. She had bowel movement yesterday after suppository. Hemoglobin is stable. REVIEW OF SYSTEMS: CONSTITUTIONAL: No night sweats. No fatigue, malaise, lethargy. No fever or chills. HEENT: Eyes: No visual changes. No eye pain. No eye discharge. ENT: No runny nose. No epistaxis. No sinus pain. No odynophagia. No congestion. RESPIRATORY: No cough, no congestion. No hemoptysis. No shortness of breath. CARDIOVASCULAR: No angina symptoms. No CHF symptoms. No atypical chest pain for CAD. No palpitations. No orthopnea.. GASTROINTESTINAL: No abdominal pain. No nausea or vomiting. No diarrhea or constipation. No hematemesis. No hematochezia. GENITOURINARY: No urgency. No frequency. No dysuria. No hematuria. No obstructive symptoms. No discharge. No pain. No significant abnormal bleeding. MUSCULOSKELETAL: Right knee pain. NEUROLOGICAL: Awake, alert, oriented to time, place and person. No headache. No neck pain. No syncope. No seizures. No dizziness. PSYCHIATRIC: Not anxious. No depression. No suicidal thoughts. No homicidal thoughts. SKIN: No rash. No lesions. No wounds. ENDOCRINE: No unexplained weight loss. No weight gain. HEMATOLOGIC/LYMPHATIC: No anemia. No purpura. No petechiae. No prolonged or excessive bleeding. No palpable lymph nodes. PHYSICAL EXAMINATION: GENERAL: The patient is awake, alert and oriented, lying in bed in no distress. VITAL SIGNS: Temperature 97.9 F, Pulse 68, Respiratory Rate 18, BP 143/78, Pulse Ox 92% HEENT: Head normocephalic, atraumatic. Eyes: Extraocular muscles are intact. Pupils are equal, round and reactive to light and accommodation. Ears: No lesions. Nose appeared normal. Throat: No exudate or erythema. NECK: Supple. No JVD, no carotid bruit. No lymphadenopathy or thyromegaly. LUNGS: Clear to auscultation. Percussion note normal. Chest symmetrical. HEART: S1, S2, no S3. No murmurs. No cyanosis or clubbing. No ascites. Pulses: Dorsalis pedis and posterior tibial pulses +1 to +2 both sides. ABDOMEN: Soft. Non-tender. Bowel sounds active. No CVA tenderness. No mass felt. EXTREMITIES: No edema. Full range of motion of all extremities, equal. Right knee swelling, minimal erythema. No signs or symptoms of infection. Incision is intact. NEUROLOGIC: No focal deficit. Cranial nerves II through XII are grossly intact. No headache, no double vision or headache. SKIN: Not dry. Intact. Turgor-normal. LYMPHATIC: No palpable lymph nodes/no lymphedema. MUSCULOSKELETAL: Normal joints with no swelling. Muscle tone is normal. LAB REVIEW: 06/26/18 04:40 06/26/18 04:40 06/26/18 04:40: Sodium 134.5 L, Potassium 3.72, Chloride 95.1 L, Carbon Dioxide 36.9 H, Anion Gap 6.22, BUN 14.7, Creatinine 0.74, Estimated GFR (MDRD) 77.00, BUN/Creatinine Ratio 19.86, Glucose 100.9, Calcium 9.21, Total Bilirubin 1.04, AST 28.0, ALT 33.4, Alkaline Phosphatase 117.5, Total Protein 6.05 L, Albumin 3.03 L, Globulin 3.02, Albumin/Globulin Ratio 1.00 06/26/18 04:40: WBC 5.68, RBC 3.32 L, Hgb 10.3 L, Hct 31.0 L, MCV 93.4, MCH 31.0 , MCHC 33.2, RDW Coeff of Lucia 14.2, Plt Count 277, Immature Gran % (Auto) 0.4, Neut % (Auto) 61.7, Lymph % (Auto) 23.6, [place] % (Auto) 9.0, Eos % (Auto) 4.6, Baso % (Auto) 0.7, Immature Gran # (Auto) 0.0, Neut # (Auto) 3.5, Lymph # (Auto ) 1.3, [place] # (Auto) 0.5, Eos # (Auto) 0.3, Baso # (Auto) 0.0 06/24/18 15:24: Miscellaneous Test Sent to [facility] ASSESSMENT: 1. RIGHT TOTAL KNEE REPLACEMENT 2. GAIT DISTURBANCE 3. LEFT LOWER LOBE INFILTRATE PER CHEST X-RAY 4. CONSTIPATION LIKELY DUE TO PAIN MEDICATION PLAN: 1. Stool softener - Colace 100 mg b.i.d. 2. Z-Pack for cough. Plan and coordination of the patient's care discussed in the presence of Wiener Packer and nurse. CONDITION: Stable SCRIBED BY: FRED ANDERSON Asphalt Mixing Machine Operator scribed while in presence of service performed by Dr. Dolan/Yue Reilly APRN on 06/26/18 (2022)
[2018-06-26] MEDS: NORVASC PO SCH (20:41)
[2018-06-27] MEDS: OXYCODONE PO PRN ×5 (01:50→21:52)
[2018-06-27] MEDS: PRILOSEC PO SCH (05:40)
[2018-06-27] MEDS: K-DUR PO SCH ×3 (08:24→16:34)
[2018-06-27] MEDS: XARELTO PO SCH (08:24)
[2018-06-27] MEDS: CALCIUM 500 + VIT D 200 MG TABLET PO SCH ×2 (08:26→20:45)
[2018-06-27] MEDS: ZETIA PO SCH (08:26)
[2018-06-27] MEDS: COZAAR PO SCH (08:27)
[2018-06-27] MEDS: HYDROCHLOROTHIAZIDE PO SCH (08:27)
[2018-06-27] MEDS: WELLBUTRIN XL PO SCH (08:27)
[2018-06-27] MEDS: ZITHROMAX PO SCH (08:28)
[2018-06-27] MEDS: MULTIVITAMIN TABLET PO SCH (08:28)
[2018-06-27] MEDS: NEURONTIN PO SCH ×3 (08:28→20:45)
[2018-06-27] MEDS: LEXAPRO PO SCH (08:29)
[2018-06-27] MEDS: COLACE PO SCH ×2 (08:30→20:45)
[2018-06-27] MEDS: METAMUCIL PO PRN (08:30)
--- NOTE | 2018-06-27 12:58 | PN ---
DATE OF SERVICE: 06/26/18 SUBJECTIVE: The patient was seen and examined with Nurse Practitioner. The patient's condition is stable. She is recovering very well. Hgb and Hct is stable with no evidence of thrombophlebitis. Right calf muscle looks almost normal. Cardiovascular status is stable. TIME SPENT: More than 30 minutes. Plan and coordination of the patient's care discussed in the presence of nurse. TIANNA
[2018-06-27] MEDS: NORVASC PO SCH (20:45)
[2018-06-28] MEDS: OXYCODONE PO PRN ×5 (01:53→21:40)
[2018-06-28] MEDS: PRILOSEC PO SCH (05:45)
[2018-06-28] MEDS: CALCIUM 500 + VIT D 200 MG TABLET PO SCH ×2 (09:22→21:39)
[2018-06-28] MEDS: COLACE PO SCH ×2 (09:23→21:38)
[2018-06-28] MEDS: LEXAPRO PO SCH (09:23)
[2018-06-28] MEDS: WELLBUTRIN XL PO SCH (09:23)
[2018-06-28] MEDS: ZETIA PO SCH (09:23)
[2018-06-28] MEDS: COZAAR PO SCH (09:23)
[2018-06-28] MEDS: HYDROCHLOROTHIAZIDE PO SCH (09:23)
[2018-06-28] MEDS: MULTIVITAMIN TABLET PO SCH (09:23)
[2018-06-28] MEDS: ZITHROMAX PO SCH (09:24)
[2018-06-28] MEDS: K-DUR PO SCH ×3 (09:24→17:06)
[2018-06-28] MEDS: NEURONTIN PO SCH ×3 (09:24→21:38)
[2018-06-28] MEDS: XARELTO PO SCH (09:24)
--- NOTE | 2018-06-28 10:10 | PCM.PROG ---
Attending Provider: ATTENDING PROVIDER: Dr. GUADALUPE DOLAN This patient is seen with Yue Reilly, Nurse Practitioner. DATE OF SERVICE: 06/28/18 SUBJECTIVE: This 72 year old WHITE/ F was hospitalized 06/24/18. The patient is doing well. She has been doing PT. The patient is having some swelling. Labs are normal. REVIEW OF SYSTEMS: CONSTITUTIONAL: No night sweats. No fatigue, malaise, lethargy. No fever or chills. HEENT: Eyes: No visual changes. No eye pain. No eye discharge. ENT: No runny nose. No epistaxis. No sinus pain. No odynophagia. No congestion. RESPIRATORY: No cough, no congestion. No hemoptysis. No shortness of breath. CARDIOVASCULAR: No angina symptoms. No CHF symptoms. No atypical chest pain for CAD. No palpitations. No orthopnea.. GASTROINTESTINAL: No abdominal pain. No nausea or vomiting. No diarrhea or constipation. No hematemesis. No hematochezia. GENITOURINARY: No urgency. No frequency. No dysuria. No hematuria. No obstructive symptoms. No discharge. No pain. No significant abnormal bleeding. MUSCULOSKELETAL: Right knee pain. NEUROLOGICAL: Awake, alert, oriented to time, place and person. No headache. No neck pain. No syncope. No seizures. No dizziness. PSYCHIATRIC: Not anxious. No depression. No suicidal thoughts. No homicidal thoughts. SKIN: No rash. No lesions. Incision right knee clean, dry and intact. ENDOCRINE: No unexplained weight loss. No weight gain. HEMATOLOGIC/LYMPHATIC: No anemia. No purpura. No petechiae. No prolonged or excessive bleeding. No palpable lymph nodes. PHYSICAL EXAMINATION: GENERAL: The patient is awake, alert and oriented, lying in bed in no distress. VITAL SIGNS: Temperature 98.1 F, Pulse 67, Respiratory Rate 20, BP 128/58, Pulse Ox 93% HEENT: Head normocephalic, atraumatic. Eyes: Extraocular muscles are intact. Pupils are equal, round and reactive to light and accommodation. Ears: No lesions. Nose appeared normal. Throat: No exudate or erythema. NECK: Supple. No JVD, no carotid bruit. No lymphadenopathy or thyromegaly. LUNGS: Clear to auscultation. Percussion note normal. Chest symmetrical. HEART: S1, S2, no S3. No murmurs. No cyanosis or clubbing. No ascites. Pulses: Dorsalis pedis and posterior tibial pulses +1 to +2 both sides. ABDOMEN: Soft. Non-tender. Bowel sounds active. No CVA tenderness. No mass felt. EXTREMITIES: Mild swelling of right knee consistent with procedure. The incision is clean, dry and intact. No signs or symptoms of infection. No edema. Full range of motion of all extremities, equal. NEUROLOGIC: No focal deficit. Cranial nerves II through XII are grossly intact. No headache, no double vision or headache. SKIN: Not dry. Intact. Turgor-normal. LYMPHATIC: No palpable lymph nodes/no lymphedema. MUSCULOSKELETAL: Normal joints with no swelling. Muscle tone is normal. LAB REVIEW: 06/28/18 05:10 06/28/18 05:10 06/28/18 05:10: Sodium 134.6 L, Potassium 3.52, Chloride 98.2, Carbon Dioxide 34.0 H, Anion Gap 5.92, BUN 14.0, Creatinine 0.68, Estimated GFR (MDRD) 85.00, BUN/Creatinine Ratio 20.58, Glucose 97.8, Calcium 9.08, Total Bilirubin 0.80, AST 29.3, ALT 30.5, Alkaline Phosphatase 108.3, Total Protein 6.04 L, Albumin 3.12 L, Globulin 2.92, Albumin/Globulin Ratio 1.06 06/28/18 05:10: WBC 5.81, RBC 3.33 L, Hgb 10.2 L, Hct 31.0 L, MCV 93.1, MCH 30.6 , MCHC 32.9, RDW Coeff of Lucia 14.3, Plt Count 258, Immature Gran % (Auto) 0.2, Neut % (Auto) 57.5, Lymph % (Auto) 29.6, [place] % (Auto) 7.4, Eos % (Auto) 4.6, Baso % (Auto) 0.7, Immature Gran # (Auto) 0.0, Neut # (Auto) 3.3, Lymph # (Auto ) 1.7, [place] # (Auto) 0.4, Eos # (Auto) 0.3, Baso # (Auto) 0.0 ASSESSMENT: 1. RIGHT TOTAL KNEE REPLACEMENT 2. GAIT DISTURBANCE 3. LEFT LOWER LOBE INFILTRATE PER CHEST X-RAY 4. CONSTIPATION LIKELY DUE TO PAIN MEDICATION PLAN: 1. Instructed to keep leg elevated when not doing PT. Use ice packs periodically. Plan and coordination of the patient's care discussed in the presence of Bond Writer and nurse. CONDITION: Stable SCRIBED BY: FRED ANDERSON Patient Consumer Marketer scribed while in presence of service performed by Dr. Dolan/Yue Reilly APRN on 06/28/18 ([id number])
--- NOTE | 2018-06-28 14:33 | HP ---
DATE OF SERVICE: 06/24/18 - SWING BED HISTORY OF PRESENT ILLNESS: This 72-year-old white female who has come to [facility] for swing bed placement after having a right total knee replacement by Dr. Andino. She is to undergo Physical and Occupational Therapy. PAST MEDICAL HISTORY: Obesity Hypertension Anxiety Depression Dyslipidemia Neuropathy Hypertension Osteoarthritis GERD History of hypokalemia Chronic back pain PAST SURGICAL HISTORY: Recent right total knee replacement by Dr. Andino. REVIEW OF SYSTEMS: CONSTITUTIONAL: No night sweats. No fatigue, malaise, lethargy. No fever or chills. HEENT: Eyes: No visual changes. No eye pain. No eye discharge. ENT: No runny nose. No epistaxis. No sinus pain. No sore throat. No odynophagia. No ear pain. No congestion. RESPIRATORY: No cough, no congestion. No hemoptysis. No shortness of breath. CARDIOVASCULAR: No angina symptoms. No CHF symptoms. No atypical chest pain for CAD. No palpitations. No PND. No orthopnea. GASTROINTESTINAL: No abdominal pain. No nausea or vomiting. No diarrhea or constipation. No hematemesis. No hematochezia. GENITOURINARY: No urgency. No frequency. No dysuria. No hematuria. No obstructive symptoms. No discharge. No pain. No significant abnormal bleeding. MUSCULOSKELETAL: Positive for right knee pain and swelling. NEUROLOGICAL: No headache. No neck pain. No syncope. No seizures. No dizziness. PSYCHIATRIC: Not anxious. No depression. No suicidal thoughts. No homicidal thoughts. SKIN: No rash. No lesions. No wounds. ENDOCRINE: No unexplained weight loss. No weight gain. HEMATOLOGIC/LYMPHATIC: No anemia. No purpura. No petechiae. No prolonged or excessive bleeding. No palpable lymph nodes. PERSONAL/FAMILY/SOCIAL HISTORY: She is , nonsmoker. No alcohol or ilicit drug use. MEDICATIONS: Potassium Chloride 20 mEq p.o. t.i.d. Omeprazole 20 mg p.o. daily Psyllium Seed one packet p.o. daily p.r.n. Meloxicam 15 mg p.o. daily Cozaar 100 mg p.o. daily Lexapro 20 mg p.o. daily Hydrochlorothiazide 25 mg p.o. daily Gabapentin 300 mg p.o. t.i.d. Bupropion 150 mg p.o. q. a.m. Tizanidine 4 mg p.o. q.8h p.r.n. Amlodipine 5 mg p.o. bedtime Rivaroxaban 10 mg p.o. daily Oxycodone 10 mg p.o. q.4h p.r.n. Docusate Sodium 100 mg p.o. daily Multivitamin one each p.o. daily Ezetimibe 10 mg p.o. daily Calcium 600 mg p.o. b.i.d. ALLERGIES: CEFDINIR, CEPHALOSPORINS, PROCHLORPERAZINE PHYSICAL EXAMINATION: VITAL SIGNS: Temperature 98.1, pulse 93, BP 139/72 left arm, right arm 152/76, respiratory rate 20. HEENT: Head normocephalic, atraumatic. Eyes: Extraocular muscles are intact. Pupils are equal, round and reactive to light and accommodation. Ears: No lesions. Nose appeared normal. Throat: No exudate or erythema. NECK: Supple. No JVD, no carotid bruit. No lymphadenopathy or thyromegaly. LUNGS: Diminished breath sounds bilaterally. Clear to auscultation. Percussion note normal. Chest symmetrical. HEART: S1, S2, no S3. No murmurs. No cyanosis or clubbing. No ascites. Pulses: Dorsalis pedis and posterior tibial pulses +1 to +2 bilaterally. ABDOMEN: Soft. Nontender. Bowel sounds active. No CVA tenderness. No mass felt. EXTREMITIES: Right knee incision is clean, dry and intact with no signs or symptoms of infection. No drainage. There is mild erythema and swelling surrounding the incision site consistent with surgical manipulation. Trace lower extremity edema. Full range of motion of all extremities, equal. NEUROLOGIC: She is alert, oriented times three. No focal deficit. Cranial nerves II through XII are grossly intact. No headache, no double vision or headache. SKIN: Warm and dry. Intact. Turgor - normal. LYMPHATIC: No palpable lymph nodes/no lymphedema. MUSCULOSKELETAL: Normal joints with no swelling. Muscle tone is normal. LABS: Sodium 132, BUN 15, creatinine 0.72, glucose 106, AST 32, ALT 34, total protein 6.1. White count 6.2, hemoglobin 10.4, hematocrit 30.7, platelets 255. ASSESSMENT: 1. RIGHT TOTAL KNEE REPLACEMENT 2. GAIT DISTURBANCE 3. ANEMIA LIKELY DUE FROM SURGERY 4. CONSTIPATION LIKELY DUE FROM PAIN MEDICINE 5. DVT PROPHYLAXIS AFTER SURGERY, THE PATIENT ON XARELTO PLAN: 1. We will admit. 2. CBC, CMP daily for the first three days then every three days. 3. Routine telemetry for 24 hours. 4. Continue all medications. 5. Pain medicine as needed. 6. Chest x-ray. 7. UA. 8. Start PT and OT evaluation and treatment. 9. Will follow closely. TIME SPENT: More than 70 minutes. MTDD
[2018-06-28] MEDS ORDERED: DULCOLAX RC STA (17:07)
[2018-06-28] MEDS: NORVASC PO SCH (21:39)
[2018-06-29] MEDS: OXYCODONE PO PRN ×4 (01:40→20:56)
[2018-06-29] MEDS: PRILOSEC PO SCH (05:45)
[2018-06-29] MEDS: MULTIVITAMIN TABLET PO SCH (08:08)
[2018-06-29] MEDS: COLACE PO SCH ×2 (08:09→20:42)
[2018-06-29] MEDS: CALCIUM 500 + VIT D 200 MG TABLET PO SCH ×2 (08:09→20:42)
[2018-06-29] MEDS: K-DUR PO SCH ×3 (08:09→16:41)
[2018-06-29] MEDS: ZITHROMAX PO SCH (08:10)
[2018-06-29] MEDS: HYDROCHLOROTHIAZIDE PO SCH (08:10)
[2018-06-29] MEDS: COZAAR PO SCH (08:10)
[2018-06-29] MEDS: NEURONTIN PO SCH ×3 (08:10→20:42)
[2018-06-29] MEDS: LEXAPRO PO SCH (08:11)
[2018-06-29] MEDS: WELLBUTRIN XL PO SCH (08:11)
[2018-06-29] MEDS: ZETIA PO SCH (08:11)
[2018-06-29] MEDS: XARELTO PO SCH (08:12)
[2018-06-29] MEDS: METAMUCIL PO PRN (08:47)
[2018-06-29] MEDS ORDERED: MILK OF MAGNESIA PO STA (11:38)
[2018-06-29] MEDS: NORVASC PO SCH (20:43)
[2018-06-30] MEDS: OXYCODONE PO PRN ×3 (02:22→20:03)
[2018-06-30] MEDS: PRILOSEC PO SCH (05:40)
[2018-06-30] MEDS: CALCIUM 500 + VIT D 200 MG TABLET PO SCH ×2 (09:57→20:03)
[2018-06-30] MEDS: ZITHROMAX PO SCH (09:57)
[2018-06-30] MEDS: HYDROCHLOROTHIAZIDE PO SCH (09:58)
[2018-06-30] MEDS: WELLBUTRIN XL PO SCH (09:58)
[2018-06-30] MEDS: ZETIA PO SCH (09:58)
[2018-06-30] MEDS: LEXAPRO PO SCH (09:59)
[2018-06-30] MEDS: NEURONTIN PO SCH ×3 (09:59→20:03)
[2018-06-30] MEDS: COZAAR PO SCH (09:59)
[2018-06-30] MEDS: K-DUR PO SCH ×3 (10:00→16:48)
[2018-06-30] MEDS: MULTIVITAMIN TABLET PO SCH (10:00)
[2018-06-30] MEDS: XARELTO PO SCH (10:00)
[2018-06-30] MEDS: COLACE PO SCH ×2 (10:00→20:03)
[2018-06-30] MEDS: MILK OF MAGNESIA PO SCH (12:49)
[2018-06-30] MEDS: NORVASC PO SCH (20:03)
[2018-07-01] MEDS: OXYCODONE PO PRN ×2 (01:30→21:54)
[2018-07-01] MEDS: PRILOSEC PO SCH (05:41)
[2018-07-01] MEDS: MILK OF MAGNESIA PO SCH (09:02)
[2018-07-01] MEDS: ZETIA PO SCH (09:02)
[2018-07-01] MEDS: COLACE PO SCH ×2 (09:02→20:26)
[2018-07-01] MEDS: LEXAPRO PO SCH (09:02)
[2018-07-01] MEDS: K-DUR PO SCH ×4 (09:03→16:44)
[2018-07-01] MEDS: NORVASC PO SCH ×2 (09:03→20:26)
[2018-07-01] MEDS: CALCIUM 500 + VIT D 200 MG TABLET PO SCH ×2 (09:03→20:26)
[2018-07-01] MEDS: MULTIVITAMIN TABLET PO SCH (09:03)
[2018-07-01] MEDS: COZAAR PO SCH (09:03)
[2018-07-01] MEDS: NEURONTIN PO SCH ×3 (09:03→20:26)
[2018-07-01] MEDS: WELLBUTRIN XL PO SCH (09:03)
[2018-07-01] MEDS: HYDROCHLOROTHIAZIDE PO SCH (09:04)
[2018-07-01] MEDS: XARELTO PO SCH (09:04)
--- NOTE | 2018-07-01 09:19 | PCM.PROG ---
Attending Provider: ATTENDING PROVIDER: Dr. GUADALUPE DOLAN This patient is seen with Yue Reilly, Nurse Practitioner. DATE OF SERVICE: 07/01/18 SUBJECTIVE: This 72 year old WHITE/ F was hospitalized 06/24/18 complaining of breakthrough pain despite Percocet. Potassium is still low. REVIEW OF SYSTEMS: CONSTITUTIONAL: No night sweats. No fatigue, malaise, lethargy. No fever or chills. HEENT: Eyes: No visual changes. No eye pain. No eye discharge. ENT: No runny nose. No epistaxis. No sinus pain. No odynophagia. No congestion. RESPIRATORY: No cough, no congestion. No hemoptysis. No shortness of breath. CARDIOVASCULAR: No angina symptoms. No CHF symptoms. No atypical chest pain for CAD. No palpitations. No orthopnea.. GASTROINTESTINAL: No abdominal pain. No nausea or vomiting. No diarrhea or constipation. No hematemesis. No hematochezia. GENITOURINARY: No urgency. No frequency. No dysuria. No hematuria. No obstructive symptoms. No discharge. No pain. No significant abnormal bleeding. MUSCULOSKELETAL: Right knee pain. NEUROLOGICAL: Awake, alert, oriented to time, place and person. No headache. No neck pain. No syncope. No seizures. No dizziness. PSYCHIATRIC: Not anxious. No depression. No suicidal thoughts. No homicidal thoughts. SKIN: No rash. No lesions. Right knee incision. No signs or symptoms of infection. ENDOCRINE: No unexplained weight loss. No weight gain. HEMATOLOGIC/LYMPHATIC: No anemia. No purpura. No petechiae. No prolonged or excessive bleeding. No palpable lymph nodes. PHYSICAL EXAMINATION: GENERAL: The patient is awake, alert and oriented, sitting in chair in no distress. VITAL SIGNS: Temperature 97.9 F, Pulse 76, Respiratory Rate 20, BP 160/89, Pulse Ox 97% HEENT: Head normocephalic, atraumatic. Eyes: Extraocular muscles are intact. Pupils are equal, round and reactive to light and accommodation. Ears: No lesions. Nose appeared normal. Throat: No exudate or erythema. NECK: Supple. No JVD, no carotid bruit. No lymphadenopathy or thyromegaly. LUNGS: Clear to auscultation. Percussion note normal. Chest symmetrical. HEART: S1, S2, no S3. No murmurs. No cyanosis or clubbing. No ascites. Pulses: Dorsalis pedis and posterior tibial pulses +1 to +2 both sides. ABDOMEN: Soft. Non-tender. Bowel sounds active. No CVA tenderness. No mass felt. EXTREMITIES: Right knee minimal swelling, minimal erythema. No signs or symptoms of infection. No edema. Full range of motion of all extremities, equal. NEUROLOGIC: No focal deficit. Cranial nerves II through XII are grossly intact. No headache, no double vision or headache. SKIN: Not dry. Intact. Turgor-normal. LYMPHATIC: No palpable lymph nodes/no lymphedema. MUSCULOSKELETAL: Normal joints with no swelling. Muscle tone is normal. LAB REVIEW: 06/29/18 04:30 06/29/18 04:30 ASSESSMENT: 1. RIGHT TOTAL KNEE REPLACEMENT 2. GAIT DISTURBANCE 3. LEFT LOWER LOBE INFILTRATE PER CHEST X-RAY 4. CONSTIPATION LIKELY DUE TO PAIN MEDICATION 5. HYPOKALEMIA PLAN: 1. K-Dur 40 mEq t.i.d. times two days 2. Increase Norvasc 5 mg b.i.d. 3. Toradol IM 30 mg t.i.d. p.r.n. Plan and coordination of the patient's care discussed in the presence of Lawn And Garden Technician and nurse. CONDITION: Stable SCRIBED BY: Fred DUKE scribed while in presence of service performed by Dr. Dolan/Yue Reilly APRN on 07/01/18 ([id number])
[2018-07-01] MEDS: TORADOL IM PRN (10:20)
[2018-07-02] MEDS: PRILOSEC PO SCH (05:48)
--- NOTE | 2018-07-02 07:30 | PN ---
DATE OF SERVICE: 06/29/18 SUBJECTIVE: 72 year old white female hospitalized with total right knee replacement. The patient is doing a lot better. The right knee incision looks clean and no evidence of infection. REVIEW OF SYSTEMS: CONSTITUTIONAL: No night sweats. No fatigue, malaise, lethargy. No fever or chills. HEENT: Eyes: No visual changes. No eye pain. No eye discharge. ENT: No runny nose. No epistaxis. No sinus pain. No sore throat. No odynophagia. No congestion. RESPIRATORY: No cough, no congestion. No hemoptysis. No shortness of breath. CARDIOVASCULAR: No angina symptoms. No CHF symptoms. No atypical chest pain for CAD. No palpitations. No orthopnea. GASTROINTESTINAL: No abdominal pain. No nausea or vomiting. Still has some constipation. No hematemesis. No hematochezia. GENITOURINARY: No urgency. No frequency. No dysuria. No hematuria. No obstructive symptoms. No discharge. No pain. No significant abnormal bleeding. MUSCULOSKELETAL: No musculoskeletal pain; no joint swelling. Mild soreness. NEUROLOGICAL: No headache. No neck pain. No syncope. No seizures. No dizziness. PSYCHIATRIC: Not anxious. No depression. No suicidal thoughts. No homicidal thoughts. SKIN: No rash. No lesions. No wounds. ENDOCRINE: No unexplained weight loss. No weight gain. HEMATOLOGIC/LYMPHATIC: No anemia. No purpura. No petechiae. No prolonged or excessive bleeding. No palpable lymph nodes. PHYSICAL EXAMINATION: VITAL SIGNS: Temperature 98.5, pulse 68, respiratory rate 20, blood pressure 140/70 and pulse ox 96%. HEENT: Head normocephalic, atraumatic. Eyes: Extraocular muscles are intact. Pupils are equal, round and reactive to light and accommodation. Ears: No lesions. Nose appeared normal. Throat: No exudate or erythema. NECK: Supple. No JVD, no carotid bruit. No lymphadenopathy or thyromegaly. LUNGS: Clear to auscultation. Percussion note normal. Chest symmetrical. HEART: S1, S2, no S3. No murmurs. No cyanosis or clubbing. No ascites. Pulses: Dorsalis pedis and posterior tibial pulses +1 to +2 both sides. ABDOMEN: Soft. Nontender. Bowel sounds active. No CVA tenderness. No mass felt. EXTREMITIES: No edema. Full range of motion of all extremities, equal. Right knee is mildly sore and incision looks clear with no drainage. Right calf is mildly swollen but nontender. No rain streaks. NEUROLOGIC: No focal deficit. Cranial nerves II through XII are grossly intact. No headache, no double vision or headache. SKIN: Not dry. Intact. Turgor - normal. LYMPHATIC: No palpable lymph nodes/no lymphedema. MUSCULOSKELETAL: Normal joints with no swelling. Muscle tone is normal. LABS: Hgb 11.3, hct 34, WBC 6,300 normal differential, creatinine 0.7, BUN 13, potassium 3.3. ASSESSMENT: 1. Right knee replacement, recovering very well 2. Mild hypokalemia, the patient is on Potassium supplements 3. Mild anemia CONDITION: Stable PLAN: 1. The patient is progressing well physical therapy, right knee is healing up. TIME SPENT: More than 30 minutes. Plan and coordination of the patient's care discussed in the presence of nurse. TIANNA
--- NOTE | 2018-07-02 07:52 | PN ---
DATE OF SERVICE: 07/01/18 SUBJECTIVE: The patient was seen and examined with Nurse Practitioner. She is ready to do step up in physical therapy. PHYSICAL EXAMINATION: HEENT: Head normocephalic, atraumatic. Eyes: Extraocular muscles are intact. Pupils are equal, round and reactive to light and accommodation. Ears: No lesions. Nose appeared normal. Throat: No exudate or erythema. NECK: Supple. No JVD, no carotid bruit. No lymphadenopathy or thyromegaly. LUNGS: Clear to auscultation. Percussion note normal. Chest symmetrical. HEART: S1, S2, no S3. No murmurs. No cyanosis or clubbing. No ascites. Pulses: Dorsalis pedis and posterior tibial pulses +1 to +2 both sides. ABDOMEN: Soft. Nontender. Bowel sounds active. No CVA tenderness. No mass felt. EXTREMITIES: No edema. Full range of motion of all extremities, equal. Right knee seems to be mildly swelling. No evidence of infection. No evidence of Thrombophlebitis. Right calf nontender. NEUROLOGIC: No focal deficit. Cranial nerves II through XII are grossly intact. No headache, no double vision or headache. SKIN: Not dry. Intact. Turgor - normal. LYMPHATIC: No palpable lymph nodes/no lymphedema. MUSCULOSKELETAL: Normal joints with no swelling. Muscle tone is normal. CONDITION: Stable TIME SPENT: More than 30 minutes. Plan and coordination of the patient's care discussed in the presence of nurse. TIANNA
--- NOTE | 2018-07-02 07:56 | PN ---
DATE OF SERVICE: 06/30/18 SUBJECTIVE: 72 year old white female hospitalized in swing bed with right total knee replacement. The patient is feeling a lot better. The son is in the room. REVIEW OF SYSTEMS: CONSTITUTIONAL: No night sweats. No fatigue, malaise, lethargy. No fever or chills. HEENT: Eyes: No visual changes. No eye pain. No eye discharge. ENT: No runny nose. No epistaxis. No sinus pain. No sore throat. No odynophagia. No congestion. RESPIRATORY: No cough, no congestion. No hemoptysis. No shortness of breath. CARDIOVASCULAR: No angina symptoms. No CHF symptoms. No atypical chest pain for CAD. No palpitations. No orthopnea. GASTROINTESTINAL: No abdominal pain. No nausea or vomiting. No diarrhea or constipation. No hematemesis. No hematochezia. GENITOURINARY: No urgency. No frequency. No dysuria. No hematuria. No obstructive symptoms. No discharge. No pain. No significant abnormal bleeding. MUSCULOSKELETAL: No musculoskeletal pain; no joint swelling. NEUROLOGICAL: No headache. No neck pain. No syncope. No seizures. No dizziness. PSYCHIATRIC: Not anxious. No depression. No suicidal thoughts. No homicidal thoughts. SKIN: No rash. No lesions. No wounds. ENDOCRINE: No unexplained weight loss. No weight gain. HEMATOLOGIC/LYMPHATIC: No anemia. No purpura. No petechiae. No prolonged or excessive bleeding. No palpable lymph nodes. PHYSICAL EXAMINATION: HEENT: Head normocephalic, atraumatic. Eyes: Extraocular muscles are intact. Pupils are equal, round and reactive to light and accommodation. Ears: No lesions. Nose appeared normal. Throat: No exudate or erythema. NECK: Supple. No JVD, no carotid bruit. No lymphadenopathy or thyromegaly. LUNGS: Clear to auscultation. Percussion note normal. Chest symmetrical. HEART: S1, S2, no S3. No murmurs. No cyanosis or clubbing. No ascites. Pulses: Dorsalis pedis and posterior tibial pulses +1 to +2 both sides. ABDOMEN: Soft. Nontender. Bowel sounds active. No CVA tenderness. No mass felt. EXTREMITIES: No edema. Full range of motion of all extremities, equal. Right knee shows mildly irritation along the strips otherwise incision is clear with no drainage. Mild swelling of the right knee as usual. Calf nontender. NEUROLOGIC: No focal deficit. Cranial nerves II through XII are grossly intact. No headache, no double vision or headache. SKIN: Not dry. Intact. Turgor - normal. LYMPHATIC: No palpable lymph nodes/no lymphedema. MUSCULOSKELETAL: Normal joints with no swelling. Muscle tone is normal. ASSESSMENT: 1. The patient is recovering well. She has been walking with the help in the hallway with no problem. The patient has not been able to climb the steps and hasn't tried it yet. We will wait for her to start that type of physical therapy tomorrow. She wants to go home for Thanksgiving. CONDITION: Stable. TIME SPENT: More than 30 minutes. Plan and coordination of the patient's care discussed in the presence of nurse. TIANNA
[2018-07-02] MEDS: LEXAPRO PO SCH (09:10)
[2018-07-02] MEDS: NORVASC PO SCH ×2 (09:11→20:41)
[2018-07-02] MEDS: ZETIA PO SCH (09:11)
[2018-07-02] MEDS: COZAAR PO SCH (09:11)
[2018-07-02] MEDS: HYDROCHLOROTHIAZIDE PO SCH (09:11)
[2018-07-02] MEDS: NEURONTIN PO SCH ×3 (09:12→20:41)
[2018-07-02] MEDS: MULTIVITAMIN TABLET PO SCH (09:12)
[2018-07-02] MEDS: WELLBUTRIN XL PO SCH (09:12)
[2018-07-02] MEDS: CALCIUM 500 + VIT D 200 MG TABLET PO SCH ×2 (09:12→20:41)
[2018-07-02] MEDS: TORADOL IM PRN (09:13)
[2018-07-02] MEDS: COLACE PO SCH ×2 (09:13→20:41)
[2018-07-02] MEDS: K-DUR PO SCH ×3 (09:13→17:15)
[2018-07-02] MEDS: MILK OF MAGNESIA PO SCH (09:14)
[2018-07-02] MEDS: XARELTO PO SCH (09:14)
[2018-07-02] MEDS: OXYCODONE PO PRN (20:41)
[2018-07-03] MEDS: PRILOSEC PO SCH (05:54)
[2018-07-03 05:59] VITALS: BP 150/76; TEMP 97.7
[2018-07-03] MEDS: HYDROCHLOROTHIAZIDE PO SCH (08:46)
[2018-07-03] MEDS: ZETIA PO SCH (08:46)
[2018-07-03] MEDS: CALCIUM 500 + VIT D 200 MG TABLET PO SCH (08:46)
[2018-07-03] MEDS: COLACE PO SCH (08:47)
[2018-07-03] MEDS: NORVASC PO SCH (08:47)
[2018-07-03] MEDS: WELLBUTRIN XL PO SCH (08:47)
[2018-07-03] MEDS: MULTIVITAMIN TABLET PO SCH (08:47)
[2018-07-03] MEDS: LEXAPRO PO SCH (08:48)
[2018-07-03] MEDS: NEURONTIN PO SCH (08:50)
[2018-07-03] MEDS: XARELTO PO SCH (08:51)
[2018-07-03] MEDS: COZAAR PO SCH (08:51)
[2018-07-03] MEDS: MILK OF MAGNESIA PO SCH (09:13)
--- NOTE | 2018-07-03 09:42 | CM.DICTOOL ---
ADMISSION: 06/24/18 13:11 DISCHARGE: 07/02/18 DATE OF SERVICE: 07/02/18 FINAL DIAGNOSIS TOTAL RIGHT KNEE ARTHROPLASTY, DR. GARLAND, 06/20/18 GAIT DISTURBANCE LEFT LOWER LOBE INFILTRATE, TREATED AND IMPROVED ACUTE POSTOPERATIVE BLOOD LOSS (NO TRANSFUSION REQUIRED) ANEMIA HYPOKALEMIA, TREATED CHRONIC BACK PAIN CONSTIPATION SLEEP APNEA (C-PAP DEPENDENCE) HYPERTENSION MORBID OBESITY (BMI 51.3) GERD OSTEOARTHRITIS SKIN CANCER URINARY INCONTINENCE NEUROPATHY ANXIETY/DEPRESSION BACK SURGERY HERNIA REPAIR TUBAL LIGATION HYSTERECTOMY EXPLORATORY LAPAROTOMY W/EXCISION OF ABDOMINAL MASS LEFT GREAT TOE NAIL REMOVAL SACROILIAC JOINT INJECTION (DR. DIXON CACERES) TONSILLECTOMY AND ADENOIDECTOMY NEVER SMOKERait abnormality (Acute) LAST VITALS Temp Pulse Resp BP Pulse Ox 97.7 F 72 18 150/76 H 94 L 07/03/18 05:59 07/03/18 05:59 07/03/18 05:59 07/03/18 05:59 07/03/18 05:59 TAKE THESE MEDICATIONS AT HOME Amlodipine Besylate (Norvasc) 5 mg PO BID [facility] Last Admin: 07/03/18 08:47 Dose: 5 mg Bupropion HCl (Wellbutrin Xl) 150 mg PO QAM [facility] Last Admin: 07/03/18 08:47 Dose: 150 mg Calcium/Vitamin D (Calcium 500 + Vit D 200 Mg Tablet) 1 each PO BID [facility] Last Admin: 07/03/18 08:46 Dose: 1 each Docusate Sodium (Colace) 100 mg PO BID [facility] Last Admin: 07/03/18 08:47 Dose: 100 mg Ezetimibe (Zetia) 10 mg PO DAILY [facility] Last Admin: 07/03/18 08:46 Dose: 10 mg Escitalopram Oxalate (Lexapro) 20 mg PO DAILY [facility] Last Admin: 07/03/18 08:48 Dose: 20 mg Gabapentin (Neurontin) 300 mg PO TID [facility] Stop: 07/14/18 14:59 Last Admin: 07/03/18 08:50 Dose: 300 mg Hydrochlorothiazide (Hydrochlorothiazide) 25 mg PO DAILY [facility] Last Admin: 07/03/18 08:46 Dose: 25 mg Losartan Potassium (Cozaar) 100 mg PO DAILY [facility] Last Admin: 07/03/18 08:51 Dose: 100 mg Magnesium Hydroxide (Milk Of Magnesia) 60 ml PO DAILY [facility] Last Admin: 07/02/18 09:14 Dose: Not Given Multivitamins (Multivitamin Tablet) 1 tab PO DAILY [facility] Last Admin: 07/03/18 08:47 Dose: 1 tab Omeprazole (Prilosec) 20 mg PO QDAC [facility] Last Admin: 07/03/18 05:54 Dose: 20 mg Oxycodone HCl (Oxycodone) 10 mg PO Q4H PRN PRN Reason: ANALGESIA Last Admin: 07/02/18 20:41 Dose: 10 mg Potassium Chloride (K-Dur) 20 meq PO TIDWM [facility] Last Admin: 07/01/18 09:48 Dose: Not Given Psyllium Hydrophilic Mucilloid (Metamucil) 1 packet PO DAILY PRN PRN Reason: Constipation Last Admin: 06/29/18 08:47 Dose: 1 packet Rivaroxaban (Xarelto) 10 mg PO DAILYWM [facility] Last Admin: 07/03/18 08:51 Dose: 10 mg Tizanidine HCl (Zanaflex) 4 mg PO Q8H PRN PRN Reason: SPASMS Last Admin: 06/29/18 05:45 Dose: 4 mg ALLERGIES cefdinir [From Omnicef] Adverse Reaction (Verified 06/24/18 17:45) Cephalosporins Adverse Reaction (Verified 06/24/18 17:45) prochlorperazine [From Compazine] Adverse Reaction (Verified 06/24/18 17:45) DISCONTINUED MEDICATIONS Amlodipine Besylate (Norvasc) 5 mg PO BEDTIME [facility] Last Admin: 06/30/18 20:03 Dose: 5 mg NEW PRESCRIPTIONS: NEW PRESCRIPTIONS FILLED AT [facility] ON ADMISSION DAY (06/24/18)-DR. GARLAND DOCUSATE SODIUM (COLACE) 100 MG, TAKE ONE TABLET BY MOUTH TWICE DAILY GABAPENTIN (NEURONTIN) 10 MG ORALLY DAILY OXYCODONE HCL (OXYCODONE) 10 MG ORALLY EVERY 4 HOURS IF NEEDED (PRN) FOR PAIN RIVAROXABAN (XARELTO) 10 MG ORALLY DAILY STOP ON 07/24/18 TIZANIDINE (ZANAFLEX) 4 MG ORALLY EVERY 8 HOURS IF NEEDED (PRN) SPASMS SMOKING: NONSMOKER DISEASE SPECIFIC EDUCATION: JOINT REPLACEMENT ACTIVITY PHYSICAL AND OCCUPATIONAL THERAPY FOLLOW UP ORTHO FOLLOW UP PCP FOLLOW UP HOME MEDICATIONS AND CHANGES NEW PRESCRIPTIONS PAIN MANAGEMENT XARELTO WITH BENEFITS AND RISKS LAB REVIEW: 07/03/18 04:10 07/03/18 04:10 07/03/18 04:10: Sodium 135.8 L, Potassium 3.50, Chloride 101.1, Carbon Dioxide 32.0 H, Anion Gap 6.20, BUN 13.6, Creatinine 0.71, Estimated GFR (MDRD) 81.00, BUN/Creatinine Ratio 19.15, Glucose 99.7, Calcium 9.13, Total Bilirubin 0.57, AST 25.2, ALT 26.3, Alkaline Phosphatase 101.9, Total Protein 6.27 L, Albumin 3.33 L, Globulin 2.94, Albumin/Globulin Ratio 1.13 07/03/18 04:10: WBC 5.12, RBC 3.64 L, Hgb 11.1 L, Hct 34.0 L, MCV 93.4, MCH 30.5 , MCHC 32.6, RDW Coeff of Lucia 14.2, Plt Count 345, Immature Gran % (Auto) 0.2, Neut % (Auto) 54.8, Lymph % (Auto) 31.1, [place] % (Auto) 9.4, Eos % (Auto) 3.7, Baso % (Auto) 0.8, Immature Gran # (Auto) 0.0, Neut # (Auto) 2.8, Lymph # (Auto ) 1.6, [place] # (Auto) 0.5, Eos # (Auto) 0.2, Baso # (Auto) 0.0 07/02/18 09:20: Sodium 139.0, Potassium 3.68, Chloride 99.2, Carbon Dioxide 32.8 H, Anion Gap 10.68, BUN 13.3, Creatinine 0.76, Estimated GFR (MDRD) 75.00, BUN/Creatinine Ratio 17.50, Glucose 121.8 H, Calcium 9.64, Total Bilirubin 0.69 , AST 31.6, ALT 32.3, Alkaline Phosphatase 117.5, Total Protein 7.40, Albumin 4.06, Globulin 3.34, Albumin/Globulin Ratio 1.21 07/02/18 09:20: WBC 5.05, RBC 4.06 L, Hgb 12.5, Hct 38.0, MCV 93.6, MCH 30.8, MCHC 32.9, RDW Coeff of Lucia 14.5, Plt Count 354, Immature Gran % (Auto) 0.4, Neut % (Auto) 64.8, Lymph % (Auto) 25.1, [place] % (Auto) 6.1, Eos % (Auto) 3.0, Baso % (Auto) 0.6, Immature Gran # (Auto) 0.0, Neut # (Auto) 3.3, Lymph # (Auto ) 1.3, [place] # (Auto) 0.3 L, Eos # (Auto) 0.2, Baso # (Auto) 0.0 PLAN: DISCHARGE HOME TODAY, 07/03/18 RETURN TO [facility]/ OCCUPATIONAL THERAPY ON 07/05/18 AT 9 A.M. KEEP YOUR APPOINTMENT WITH DR. ERYN GARLAND ON 07/17/18 AT 1:20 P.M. [address] [facility] [address] [phone] FOLLOW UP WITH VIJAYA CASTRO DO (YOU SCHEDULE A FOLLOW UP APPOINTMENT) [address] [facility], [address] [place] [id number] #[phone] NEW PRESCRIPTIONS FILLED AT [facility] ON ADMISSION DAY (06/24/18)-DR. GARLAND DOCUSATE SODIUM (COLACE) 100 MG ORALLY, MAY TAKE TWICE DAILY GABAPENTIN (NEURONTIN) 10 MG ORALLY DAILY OXYCODONE HCL (OXYCODONE) 10 MG ORALLY EVERY 4 HOURS IF NEEDED (PRN) FOR PAIN RIVAROXABAN (XARELTO) 10 MG ORALLY DAILY STOP ON 07/24/18 TIZANIDINE (ZANAFLEX) 4 MG ORALLY EVERY 8 HOURS IF NEEDED (PRN) SPASMS RESUME YOUR HOME MEDICATIONS PER LIST PROVIDED BY THE NURSING STAFF DO NOT RESUME YOUR MOBIC OR LASIX UNTIL INSTRUCTED BY YOUR PCP PLEASE NOTE THE INCREASE IN YOUR AMLODIPINE BESYLATE (NORVASC) TO 5 MG ORALLY TWICE DAILY WEAN OFF THE OXYCODONE OVER A 7 DAY PERIOD TO TYLENOL PAIN IS IMPROVED (PER DR. GARLAND) ACTIVITY FOLLOW YOUR ORTHO PHYSICIAN'S ORDERS REGARDING YOUR SURGICAL SITE AND ACTIVITY USE YOUR ROLLING WALKER TO ASSIST WITH AMBULATION DIET HEALTHY HEART SUMMARY THE PATIENT IS ALERT AND ORIENTED X3. SHE CURRENTLY RESIDES AT HOME WITH HER SPOUSE. HE AND HER SONS ARE SUPPORTIVE OF HER NEEDS. PRIOR TO THIS SURGERY SHE WAS INDEPENDENT WITH ADL'S. SHE DID NOT REQUIRE HOME HEALTH OR HOMEMAKING SERVICES AND HAS DECLINED REFERRAL FOR DISCHARGE WITH THIS STAY. SHE HAS A ROLLING WALKER, BEDSIDE COMMODE, ADJUSTABLE BED-BOTH FOOT AND HEAD AND C-PAP AT HOME. SHE DESIRES TO RETURN TO [facility] TO RECEIVE CONTINUED PHYSICAL AND OCCUPATIONAL THERAPY. SERVICES HAVE BEEN SCHEDULED LISTED ABOVE. THE INCISION LINE IS WELL APPROXIMATED VIA DERMABOND AND STERI-STRIPS. THERE IS VERY MINIMAL SWELLING AT THE JOINT. REDNESS HAS DISSIPATED INTO PALE PINKNESS AT THE DISTAL END OF THE INCISION AND SURROUNDING SKIN. THERE IS NO DRAINAGE OR OTHER S/S OF INFECTION. THE PATIENT HAS REQUIRED OXYCODONE PRN AND TORADOL IM PRN FOR PAIN CONTROL. DR. GARLAND HAS INSTRUCTED THE PATIENT TO WEAN OFF OF THE OXYCODONE TO TYLENOL FOR PAIN. WE WILL SUPPORT HIS INSTRUCTION. MS. ROSALES HAS ALSO BEEN INSTRUCTED BY DR. GARLAND TO TAKE THE XARELTO FOR 30 DAYS FOLLOWING DISCHARGE AT [facility]. WE HAVE REINFORCED THIS INSTRUCTION TO HER WELL. CURRENT CODE STATUS DO NOT RESUSCITATE HUAN OSBORNE APRN GUADALUPE DOLAN M.D.
--- NOTE | 2018-07-03 09:47 | PCM.PROG ---
Attending Provider: ATTENDING PROVIDER: Dr. GUADALUPE FLOOD This patient is seen with Yue Reilly, Nurse Practitioner. DATE OF SERVICE: 07/03/18 SUBJECTIVE: This 72 year old WHITE/ F was hospitalized 06/24/18. The patient is sitting in chair resting comfortably. She has been doing well with PT/OT. She states ready to go home today. She is going to be discharged home and will have PT/OT as outpatient at [facility]. Potassium has improved and hemoglobin is stable. REVIEW OF SYSTEMS: CONSTITUTIONAL: No night sweats. No fatigue, malaise, lethargy. No fever or chills. HEENT: Eyes: No visual changes. No eye pain. No eye discharge. ENT: No runny nose. No epistaxis. No sinus pain. No odynophagia. No congestion. RESPIRATORY: No cough, no congestion. No hemoptysis. No shortness of breath. CARDIOVASCULAR: No angina symptoms. No CHF symptoms. No atypical chest pain for CAD. No palpitations. No orthopnea.. GASTROINTESTINAL: No abdominal pain. No nausea or vomiting. No diarrhea or constipation. No hematemesis. No hematochezia. GENITOURINARY: No urgency. No frequency. No dysuria. No hematuria. No obstructive symptoms. No discharge. No pain. No significant abnormal bleeding. MUSCULOSKELETAL: Right knee pain. NEUROLOGICAL: Awake, alert, oriented to time, place and person. No headache. No neck pain. No syncope. No seizures. No dizziness. PSYCHIATRIC: Not anxious. No depression. No suicidal thoughts. No homicidal thoughts. SKIN: No rash. No lesions. Right knee incision. ENDOCRINE: No unexplained weight loss. No weight gain. HEMATOLOGIC/LYMPHATIC: No anemia. No purpura. No petechiae. No prolonged or excessive bleeding. No palpable lymph nodes. PHYSICAL EXAMINATION: GENERAL: The patient is awake, alert and oriented, lying in bed in no distress. VITAL SIGNS: Temperature 97.7 F, Pulse 72, Respiratory Rate 18, BP 150/76, Pulse Ox 94% HEENT: Head normocephalic, atraumatic. Eyes: Extraocular muscles are intact. Pupils are equal, round and reactive to light and accommodation. Ears: No lesions. Nose appeared normal. Throat: No exudate or erythema. NECK: Supple. No JVD, no carotid bruit. No lymphadenopathy or thyromegaly. LUNGS: Clear to auscultation. Percussion note normal. Chest symmetrical. HEART: S1, S2, no S3. No murmurs. No cyanosis or clubbing. No ascites. Pulses: Dorsalis pedis and posterior tibial pulses +1 to +2 both sides. ABDOMEN: Soft. Non-tender. Bowel sounds active. No CVA tenderness. No mass felt. EXTREMITIES: Left knee incision, clean, dry and intact. No signs or symptoms of infection. No edema. Full range of motion of all extremities, equal. NEUROLOGIC: No focal deficit. Cranial nerves II through XII are grossly intact. No headache, no double vision or headache. SKIN: Warm, dry and intact. Turgor-normal. LYMPHATIC: No palpable lymph nodes/no lymphedema. MUSCULOSKELETAL: Normal joints with no swelling. Muscle tone is normal. LAB REVIEW: 07/03/18 04:10 07/03/18 04:10 07/03/18 04:10: Sodium 135.8 L, Potassium 3.50, Chloride 101.1, Carbon Dioxide 32.0 H, Anion Gap 6.20, BUN 13.6, Creatinine 0.71, Estimated GFR (MDRD) 81.00, BUN/Creatinine Ratio 19.15, Glucose 99.7, Calcium 9.13, Total Bilirubin 0.57, AST 25.2, ALT 26.3, Alkaline Phosphatase 101.9, Total Protein 6.27 L, Albumin 3.33 L, Globulin 2.94, Albumin/Globulin Ratio 1.13 07/03/18 04:10: WBC 5.12, RBC 3.64 L, Hgb 11.1 L, Hct 34.0 L, MCV 93.4, MCH 30.5 , MCHC 32.6, RDW Coeff of Lucia 14.2, Plt Count 345, Immature Gran % (Auto) 0.2, Neut % (Auto) 54.8, Lymph % (Auto) 31.1, [place] % (Auto) 9.4, Eos % (Auto) 3.7, Baso % (Auto) 0.8, Immature Gran # (Auto) 0.0, Neut # (Auto) 2.8, Lymph # (Auto ) 1.6, [place] # (Auto) 0.5, Eos # (Auto) 0.2, Baso # (Auto) 0.0 07/02/18 09:20: Sodium 139.0, Potassium 3.68, Chloride 99.2, Carbon Dioxide 32.8 H, Anion Gap 10.68, BUN 13.3, Creatinine 0.76, Estimated GFR (MDRD) 75.00, BUN/Creatinine Ratio 17.50, Glucose 121.8 H, Calcium 9.64, Total Bilirubin 0.69 , AST 31.6, ALT 32.3, Alkaline Phosphatase 117.5, Total Protein 7.40, Albumin 4.06, Globulin 3.34, Albumin/Globulin Ratio 1.21 07/02/18 09:20: WBC 5.05, RBC 4.06 L, Hgb 12.5, Hct 38.0, MCV 93.6, MCH 30.8, MCHC 32.9, RDW Coeff of Lucia 14.5, Plt Count 354, Immature Gran % (Auto) 0.4, Neut % (Auto) 64.8, Lymph % (Auto) 25.1, [place] % (Auto) 6.1, Eos % (Auto) 3.0, Baso % (Auto) 0.6, Immature Gran # (Auto) 0.0, Neut # (Auto) 3.3, Lymph # (Auto ) 1.3, [place] # (Auto) 0.3 L, Eos # (Auto) 0.2, Baso # (Auto) 0.0 ASSESSMENT: 1. RIGHT TOTAL KNEE REPLACEMENT 2. GAIT DISTURBANCE 3. LEFT LOWER LOBE INFILTRATE, RESOLVED 4. CONSTIPATION LIKELY DUE TO PAIN MEDICATION 5. HYPOKALEMIA - RESOLVED PLAN: 1. D/C home today. 2. PT/OT as outpatient at [facility]. 3. Continue Xarelto. 4. Prescription for Percocet. 5. Fall precautions. 6. Resume potassium 20 mg t.i.d. 7. Norvasc 5 mg b.i.d. 8. Followup with Dr. Andino and PCP. Plan and coordination of the patient's care discussed in the presence of [place] [employer] and nurse. CONDITION: Stable SCRIBED BY: FRED ANDERSON Bacteriologist Pharmaceutical scribed while in presence of service performed by Dr. Flood/Yue Reilly APRN on 07/03/18 (1322)
--- NOTE | 2018-07-08 07:39 | PN ---
DATE OF SERVICE: 07/03/18 SUBJECTIVE: The patient was seen and examined with Nurse Practitioner. The patient is doing well with right knee total replacement. The patient is to be discharged. The patient is to be followed by primary care and also by orthopedic MD as instructed. The patient's right knee is healing up very well. The calf is nontender. No evidence of thrombophlebitis. The patient's potential for full physical therapy is above average. CONDITION: Stable. TIME SPENT: More than 30 minutes. Plan and coordination of the patient's care discussed in the presence of nurse. TIANNA
--- NOTE | 2018-07-08 07:41 | PN ---
06/24/18: Swing bed admission Level 5 06/25/18: Intermediate 14/18: Intermediate 1518: Intermediate 06/28/18: Intermediate 06/29/18: Intermediate 18: Intermediate 07/01/18: Intermediate 07/02/18: Intermediate 07/03/18: D as in discharge MTDD
--- NOTE | 2018-07-08 13:39 | DS ---
DATE OF SERVICE: 07/03/18 FINAL DIAGNOSIS: 1. SUBDURAL AND SUBARACHNOID HEMORRHAGE FROM FALL AT HOME 06/30 2. DECLINE IN FUNCTIONAL MOBILITY AND DECREASED SAFETY 3. OPEN HEAD INJURY FROM GROUND LEVEL FALL AT HOME, 08/30 4. LEFT FOREHEAD LACERATION 2" FROM 08/30 FALL, HEALED 5. ANEMIA 6. HISTORY OF FREQUENT FALLS AT HOME 7. THROMBOCYTOPENIA 8. CAD 9. HYPERTENSION 10. HYPOTHYROIDISM 11. PROSTATE CANCER 12. DYSLIPIDEMIA 13. HISTORY OF EHRLICHIA, 02/23 14. DEMENTIA 15. STOPPED SMOKING 48 YEARS AGO LAST VITALS: Temperature 98.5, pulse 54, respiratory rate 16, BP 150/84, pulse ox 97 DISCHARGE INSTRUCTIONS: Followup appointment with Dr. Otilia Montalvo DO (patient to schedule followup appointment)/[address] [facility] [facility], [address]/[place] [address]. Ph# . Keep appointment with Dr. Dimas/Poli Cordon APRN 07/22/18 at 8: 45 a.m./[facility] Neurosurgery/[address] [address], [address]/[place] [address]. PH#[phone]. Remember to have your CT PAD head without contrast at [facility] 07/22/18 at 7:15 a.m./[address] [place] [address]. MEDICATIONS AT DISCHARGE: Bisacodyl 10 mg RC daily p.r.n. Bisoprolol Fumarate (Zebeta) 10 mg p.o. daily [facility] Docusate Sodium (Colace) 100 mg p.o. t.i.d. with meal [facility] Isosorbide (Imdur) 30 mg p.o. daily [facility] Levothyroxine (Synthroid) 50 mcg p.o. q.d a.c. [facility] Losartan Potassium 100 mg p.o. daily [facility] Polyethylene Glycol 17 gm p.o. b.i.d. [facility] Potassium Chloride 20 mEq p.o. daily with meal [facility] NEW PRESCRIPTIONS: Potassium Chloride (K-Dur) 20 mEq p.o. daily DIET INSTRUCTIONS: As tolerated. ACTIVITY: Get plenty of rest at home. Gradually increase your activity level according to your toleration. SMOKING: Nonsmoker/None for 48 years DISEASE SPECIFIC EDUCATION: Subdural and subarachnoid hemorrhage Falls at home Weakness Chronic dizziness Home medications and changes New prescriptions Followup in the office Appointments with neurosurgeon and for CT head HOSPITAL COURSE: This is a 72-year-old white female who had a right total knee replacement done by Dr. Andino. She was brought here for physical therapy and occupational therapy and rehab. Chest x-ray was done initially just for workup and showed left lower lobe infiltrate. She was placed on a Z-Pack orally and this improved. She did not experience any cough, shortness of breath or fever. This was just an incidental finding. Her pain was pretty much controlled with Percocet q.4hr however as therapy increased she did report some breakthrough pain which we gave Toradol 30 mg IM q.8hr p.r.n. She stated this did help for breakthrough pain however she does not feel that she needs any additional pain medicine other than the Percocet to go home. Dr. Andino had placed her on Xarelto 10 mg daily for DVT prophylaxis following knee replacement. She will finish the remaining course of this for up to 30 days protocol at home she has a prescription. She did experience some hypokalemia two days ago with the potassium of 3.1. She is already on 20 mEq t.i.d. I doubled this and gave her 40 mEq t.i.d. and today is up to 3.6 at discharge. She will resume her 20 mEq t.i.d. at home. She is going to go home in stable condition. She is going to come back here to [place] for outpatient physical and occupational therapy to continue. She did have some anemia initially. She never required a transfusion. This is due to surgery. Otherwise she has had a normal stay with no acute problems. Bowel movements have been regular. Pain is controlled. She did have some hypertension initially and we increased her Norvasc from 5 mg daily to 5 mg b.i.d. Blood pressure has been well-controlled since this change. She will continue to go home on Norvasc 5 mg b.i.d. She has a followup appointment with Dr. Andino which she instructed to keep as well as with her primary care provider which she is instructed to keep. She is not our regular patient. Primary care is Otilia Montalvo. She has a followup appointment scheduled. She will be discharged home today in stable condition. TIME SPENT: More than 60 minutes. MTDD
== END 2018-07-03 10:39 | disposition home or self-care (01) | DRG 556 ==
LOC: MEDSURG B 13:11
PROVIDERS: ADMIT Internal Medicine; ATTEND Internal Medicine
DX: R26.2 Difficulty in walking, not elsewhere classified (principal); D64.9 Anemia, unspecified; D69.6 Thrombocytopenia, unspecified; I25.10 Atherosclerotic heart disease of native coronary artery without angina pectoris; I10 Essential (primary) hypertension; E03.9 Hypothyroidism, unspecified; E78.5 Hyperlipidemia, unspecified; E87.6 Hypokalemia; F03.90 Unspecified dementia, unspecified severity, without behavioral disturbance, psychotic disturbance, mood disturbance, and anxiety; K59.00 Constipation, unspecified; R91.8 Other nonspecific abnormal finding of lung field; Z96.651 Presence of right artificial knee joint; Z91.81 History of falling
CPT/HCPCS: 36415; 80053; 85025; 87081; 93005; 93010; 97802; 99306; 99308; 99316

== ENCOUNTER 2018-08-09 13:00 | Outpatient (RCR) | END 2018-08-12 23:59 | PROVIDERS: ATTEND Internal Medicine | DX: Z47.1 Aftercare following joint replacement surgery (principal); Z96.651 Presence of right artificial knee joint; M25.561 Pain in right knee; M62.81 Muscle weakness (generalized); M25.661 Stiffness of right knee, not elsewhere classified; R26.9 Unspecified abnormalities of gait and mobility ==